=== PATIENT | female | born 1995 | race Caucasian/White ===

== ENCOUNTER 2018-04-23 12:30 | Inpatient (IN) | payer OTHER ==
[~2018-04-23] VITALS: Ht 165.1 cm; Wt 120.7 kg
[2018-04-23 13:46] VITALS: BP 134/83
[2018-04-23 13:49] LABS: EOSINOPHILS % (AUTO) 10.4 % (0.0-3.0); HEMATOCRIT 39.6 % (37.0-47.0); HEMOGLOBIN 13.5 G/DL (12.0-16.0); LYMPHOCYTES % (AUTO) 22.9 % (20.0-45.0); MEAN CORPUSCULAR VOLUME 83 FL (80-99); MONOCYTES % (AUTO) 5.7 % (1.0-10.0); NEUTROPHILS % (AUTO) 60.1 % (45.0-75.0); PLATELET COUNT 284 K/UL (150-450); RED BLOOD COUNT 4.77 M/UL (4.20-5.40); RED CELL DISTRIBUTION WIDTH 10.2 % (11.6-14.8); WHITE BLOOD COUNT 9.9 K/UL (4.8-10.8)
[2018-04-23 14:00] LABS: INR 1.1 (0.9-1.1)
[2018-04-23] MEDS ORDERED: NKM (14:14)
[2018-04-23 14:18] LABS: ANION GAP 12 mmol/L (5-15); BLOOD UREA NITROGEN 11 mg/dL (7-18); CALCIUM 9.3 MG/DL (8.5-10.1); CARBON DIOXIDE 24 MMOL/L (21-32); CHLORIDE 102 MMOL/L (98-107); CREATININE 0.9 MG/DL (0.55-1.30); POTASSIUM 3.7 MMOL/L (3.5-5.1); SODIUM 138 MMOL/L (136-145)
[2018-04-23 14:23] LABS: ALANINE AMINOTRANSFERASE 61 U/L (12-78); ALBUMIN 3.9 G/DL (3.4-5.0); ALKALINE PHOSPHATASE 73 U/L (46-116); ASPARTATE AMINO TRANSFERASE 47 U/L (15-37); BILIRUBIN,TOTAL 0.9 MG/DL (0.2-1.0)
[2018-04-23] MEDS ORDERED: Mylanta II UD 30ml ORAL PRN (14:30)
--- NOTE | 2018-04-23 14:36 | Emergency Room Report ---
History of Present Illness General Chief Complaint: Skin Rash/Abscess Source: Patient Present Illness HPI This patient has a history of hidradenitis suppurativa. She presents to the emergency department for admission for surgical resection by Dr. Gutiérrez. She has no other complaints. Allergies: Coded Allergies: MORPHINE (Verified Allergy, Unknown, 04/23/18) Patient History Past Medical History: see triage record, DM Social History: Denies: smoking, alcohol use, drug use Last Menstrual Period: March, Now: No Reviewed Nursing Documentation: PMH: Agreed; PSxH: Agreed Nursing Documentation-PMH Past Medical History: No History, Except For Hx Cardiac Problems: Yes - Fibromyalgia, endometriosis Hx Diabetes: Yes Review of Systems All Other Systems: negative except mentioned in HPI Physical Exam Vital Signs Date Time Temp Pulse Resp B/P (MAP) Pulse Ox O2 Delivery O2 Flow Rate FiO2 04/23/18 12:50 Room Air 04/23/18 13:46 97.9 75 18 134/83 99 97.9 Sp02 EP Interpretation: reviewed, normal General Appearance: no apparent distress, alert, GCS 15, non-toxic Head: normocephalic, atraumatic Eyes: bilateral eye normal inspection, bilateral eye PERRL ENT: hearing grossly normal, normal pharynx, no angioedema, normal voice Respiratory: no respiratory distress, no retraction, no accessory muscle use, speaking full sentences Rectal: deferred Musculoskeletal: back normal, gait/station normal, normal range of motion, non- tender Neurologic: alert, oriented x3, responsive, motor strength/tone normal, sensory intact, speech normal Psychiatric: judgement/insight normal, memory normal, mood/affect normal, no suicidal/homicidal ideation Skin: warm/dry, well hydrated, other - Multiple areas of cystic lesions on bilateral axillary folds, breasts and chest. Medical Decision Making Diagnostic Impression: Primary Impression: Hidradenitis suppurativa ER Course This patient has hidradenitis suppurativa that is resistant to conservative treatment. Patient is admitted for surgical treatment by Dr. Gutiérrez. Laboratory Tests Test 04/23/18 13:40 White Blood Count 9.9 K/UL (4.8-10.8) Red Blood Count 4.77 M/UL (4.20-5.40) Hemoglobin 13.5 G/DL (12.0-16.0) Hematocrit 39.6 % (37.0-47.0) Mean Corpuscular Volume 83 FL (80-99) Mean Corpuscular Hemoglobin 28.4 PG (27.0-31.0) Mean Corpuscular Hemoglobin Concent 34.2 G/DL (32.0-36.0) Red Cell Distribution Width 10.2 % (11.6-14.8) L Platelet Count 284 K/UL (150-450) Mean Platelet Volume 7.1 FL (6.5-10.1) Neutrophils (%) (Auto) 60.1 % (45.0-75.0) Lymphocytes (%) (Auto) 22.9 % (20.0-45.0) Monocytes (%) (Auto) 5.7 % (1.0-10.0) Eosinophils (%) (Auto) 10.4 % (0.0-3.0) H Basophils (%) (Auto) 1.0 % (0.0-2.0) Prothrombin Time 11.1 SEC (9.30-11.50) Prothrombin Time INR 1.1 (0.9-1.1) PTT 35 SEC (23-33) H Sodium Level 138 MMOL/L (136-145) Potassium Level 3.7 MMOL/L (3.5-5.1) Chloride Level 102 MMOL/L (98-107) Carbon Dioxide Level 24 MMOL/L (21-32) Anion Gap 12 mmol/L (5-15) Blood Urea Nitrogen 11 mg/dL (7-18) Creatinine 0.9 MG/DL (0.55-1.30) Estimate Glomerular Filtration Rate > 60 mL/min (>60) Glucose Level 168 MG/DL (74-106) H Calcium Level 9.3 MG/DL (8.5-10.1) Total Bilirubin 0.9 MG/DL (0.2-1.0) Aspartate Amino Transferase (AST) 47 U/L (15-37) H Alanine Aminotransferase (ALT) 61 U/L (12-78) Alkaline Phosphatase 73 U/L (46-116) Total Protein 8.0 G/DL (6.4-8.2) Albumin 3.9 G/DL (3.4-5.0) Globulin 4.1 g/dL Albumin/Globulin Ratio 1.0 (1.0-2.7) Last Vital Signs Date Time Temp Pulse Resp B/P (MAP) Pulse Ox O2 Delivery O2 Flow Rate FiO2 04/23/18 13:46 97.9 75 18 134/83 99 Room Air 97.9 Disposition: ADMITTED INPATIENT Condition: Stable Angi Jc DO Apr 23, 2018 14:36
[2018-04-23] MEDS ORDERED: oxyCODONE HCL/Acetaminophen 5/325mg ORAL PRN (15:30)
[2018-04-23 16:00] VITALS: BP 121/97
[2018-04-23] MEDS: HYDROmorphone 1mg/ml Carpuject IVP PRN (16:37)
[2018-04-23] MEDS: cefTRIAXone 1 GM in D5W 55 ML IVPB SCH (17:10)
--- NOTE | 2018-04-23 17:10 | History and Physical ---
History of Present Illness General Date patient seen: Apr 23, 2018 Time patient seen: 13:00 Reason for Hospitalization: Skin Rash/Abscess Present Illness HPI 22 year old woman with obesity, diet controlled DM2 x 1 year, hidradenitis suppurative x 10 years s/p axillary and inguinal surgeries who presents with progressive pain, swelling and multiple purulent draining lesions of bilateral axillae and breasts who has been worsening over the past month. She reports subjective fever, 80 lb unintentional weight loss, intermittent nausea, vomiting and diarrhea. She also reports intermittent subjective fevers especially when new lesions erupt. In ED she was noted to have fever or leukocytosis, SIRS criteria not met. Allergies: Coded Allergies: MORPHINE (Verified Allergy, Unknown, 04/23/18) Medication History Scheduled No Known Medications* (NKM - No Known Medications*), 0 ., (Reported) Patient History History Provided By: Patient Healthcare decision maker Resuscitation status Full Code Advanced Directive on File Family History Family History: FH: diabetes mellitus Fibromyalgia Social History Social History: (1) Non-tobacco user Review of Systems Constitutional: Reports: fever Eye: Denies: blurred vision ENT: Denies: ear pain Respiratory: Denies: cough, orthopnea, shortness of breath Cardiovascular: Denies: chest pain, palpitations Gastrointestinal: Denies: abdominal pain, constipation Genitourinary: Denies: discharge, dysuria, frequency Musculoskeletal: Denies: back pain, gout Skin: Reports: see HPI, lesions Psychiatric: Denies: anxiety, depressed feelings Neurological: Denies: headache, numbness, paresthesia, seizure Endocrine: Denies: excessive sweating, flushing Hematologic/Lymphatic: Denies: anemia, blood clots, easy bleeding Physical Exam General Appearance: no apparent distress, alert HEENT: atraumatic, anicteric Neck: normal alignment, supple, normal inspection Respiratory/Chest: lungs clear, normal breath sounds, no respiratory distress Cardiovascular/Chest: normal rate, regular rhythm, no gallop/murmur, no JVD Abdomen: normal bowel sounds, non tender, soft Extremities: normal range of motion, non-tender, normal inspection, no calf tenderness Skin Exam: other - Multiple erythematous lesions of the bilateral axillae and bilateral breasts with tenderness to palpation with warmth and induration. Some areas of serous drainage. 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 grossly normal, no motor/sensory deficits, oriented x 3 , responsive, normal mood/affect Musculoskeletal: normal muscle bulk, no effusion Last 24 Hour Vital Signs Date Time Temp Pulse Resp B/P (MAP) Pulse Ox O2 Delivery O2 Flow Rate FiO2 04/23/18 16:37 97.9 04/23/18 15:30 Room Air 04/23/18 14:53 97.9 75 18 134/83 99 Room Air 97.9 04/23/18 13:46 97.9 75 18 134/83 99 Room Air 97.9 04/23/18 12:50 Room Air Laboratory Tests Test 04/23/18 13:40 White Blood Count 9.9 K/UL (4.8-10.8) Red Blood Count 4.77 M/UL (4.20-5.40) Hemoglobin 13.5 G/DL (12.0-16.0) Hematocrit 39.6 % (37.0-47.0) Mean Corpuscular Volume 83 FL (80-99) Mean Corpuscular Hemoglobin 28.4 PG (27.0-31.0) Mean Corpuscular Hemoglobin Concent 34.2 G/DL (32.0-36.0) Red Cell Distribution Width 10.2 % (11.6-14.8) L Platelet Count 284 K/UL (150-450) Mean Platelet Volume 7.1 FL (6.5-10.1) Neutrophils (%) (Auto) 60.1 % (45.0-75.0) Lymphocytes (%) (Auto) 22.9 % (20.0-45.0) Monocytes (%) (Auto) 5.7 % (1.0-10.0) Eosinophils (%) (Auto) 10.4 % (0.0-3.0) H Basophils (%) (Auto) 1.0 % (0.0-2.0) Prothrombin Time 11.1 SEC (9.30-11.50) Prothromb Time International Ratio 1.1 (0.9-1.1) Activated Partial Thromboplast Time 35 SEC (23-33) H Sodium Level 138 MMOL/L (136-145) Potassium Level 3.7 MMOL/L (3.5-5.1) Chloride Level 102 MMOL/L (98-107) Carbon Dioxide Level 24 MMOL/L (21-32) Anion Gap 12 mmol/L (5-15) Blood Urea Nitrogen 11 mg/dL (7-18) Creatinine 0.9 MG/DL (0.55-1.30) Estimat Glomerular Filtration Rate > 60 mL/min (>60) Glucose Level 168 MG/DL (74-106) H Calcium Level 9.3 MG/DL (8.5-10.1) Total Bilirubin 0.9 MG/DL (0.2-1.0) Aspartate Amino Transf (AST/SGOT) 47 U/L (15-37) H Alanine Aminotransferase (ALT/SGPT) 61 U/L (12-78) Alkaline Phosphatase 73 U/L (46-116) Total Protein 8.0 G/DL (6.4-8.2) Albumin 3.9 G/DL (3.4-5.0) Globulin 4.1 g/dL Albumin/Globulin Ratio 1.0 (1.0-2.7) Height (Feet): 5 Height (Inches): 5.00 Weight (Pounds): 246 Medications Current Medications Medications (Trade) Dose Ordered Sig/Eloisa Route PRN Reason Start Time Stop Time Status Last Admin Dose Admin Acetaminophen (Tylenol) 650 mg Q4H PRN ORAL Mild Pain (Pain Scale 1-3) 04/23/18 15:05 05/23/18 15:04 Al Hydroxide/Mg Hydroxide (Mylanta II) 30 ml Q6H PRN ORAL dyspepsia 04/23/18 14:30 05/23/18 14:29 Ceftriaxone Sodium 1 gm/ Dextrose 55 ml @ 110 mls/hr Q24H IVPB 04/23/18 17:00 04/30/18 16:59 Dextrose (Dextrose 50%) 25 ml Q30M PRN IV Hypoglycemia 04/23/18 14:30 05/23/18 14:29 Dextrose (Dextrose 50%) 50 ml Q30M PRN IV Hypoglycemia 04/23/18 14:30 05/23/18 14:29 Diphenhydramine HCl (Benadryl) 25 mg Q6H PRN ORAL Itching/Pruritis 04/23/18 14:30 05/23/18 14:29 Docusate Sodium (Colace) 100 mg EVERY 12 HOURS ORAL 04/23/18 21:00 05/23/18 20:59 Hydromorphone HCl (Dilaudid) 1 mg Q4H PRN IVP Severe Breakthru Pain (>7) 04/23/18 15:30 04/30/18 15:29 04/23/18 16:37 Ondansetron HCl (Zofran) 4 mg Q6H PRN IVP Nausea & Vomiting 04/23/18 14:30 05/23/18 14:29 Oxycodone/ Acetaminophen (Percocet 5-325) 1 tab Q4H PRN ORAL Moderate Pain (Pain Scale 4-6) 04/23/18 15:30 04/30/18 15:29 Polyethylene Glycol (Miralax) 17 gm HSPRN PRN ORAL Constipation 04/23/18 14:30 05/23/18 14:29 Sodium Chloride 1,000 ml @ 50 mls/hr Q20H IV 04/23/18 15:04 05/23/18 15:03 04/23/18 15:04 Vancomycin HCl (Vanco rx to dose) 1 ea DAILY PRN MISC VANCO PER PHARMACY 04/23/18 16:00 05/23/18 15:59 Vancomycin HCl/ Dextrose 250 ml @ 166.667 mls/hr Q12H IVPB 04/23/18 18:00 04/28/18 17:59 Assessment/Plan Assessment/Plan 22 year old woman with history of hidradenitis suppurativa, obesity, diet controlled diabetes, fibromyalgia who presents with worsening multiple bilateral axillary and breast draining abscesses associated with red, pain, subjective fever. Will admit to medical service for further management and she will likely require a hospitalization crossing 2 midnights in order to get IV antibiotics and close hemodynamic monitoring. 1)Multiple bilateral axillary and breast abscesses without sepsis, will admit to medical service, start IV vancomycin and ceftriaxone, monitor vanco levels per pharmacy protcol. Spoke with infectious disease specialist who will evaluate the patient. Spoke with Dr. Jiang who will evaluate for surgical debridement. Will make NPO after midnight. Patient is considered medically optimized to go to the OR. Will commence symptomatic care, will order Percocet for mild to moderate pain, IV Dilaudid for severe pain, she reports morphine allergy (mild rash) and that Dilaudid has worked well for her in the past. Add bowel regimen and IV Zofran prn. 2)history of obesity and diet controlled DM, diabetic diet with lispro coverage once she is able to eat 3)history of fibromyalgia, currently not on any medications for thisl Based on the patient's medical history, and other available ancillary data, the patient is a LOW risk for an INTERMEDIATE risk procedure. Per the most recent ACC/AHA guidelines, the patient does not need any further cardiopulmonary testing prior to the procedure and there do not appear to be any clear medical contraindications to proceeding with the proposed procedure. Post operative recommendations include: - Encourage mobilization/ambulation - Encourage incentive spirometry to optimize pulmonary hygiene - DVT/GI prophylaxis as appropriate - Pain control and supportive care Ayo Rodriguez MD Apr 23, 2018 17:10
[2018-04-23 17:28] VITALS: BP 134/83
[2018-04-23] MEDS: Vancomycin 1250mg/D5W 250ml IVPB SCH (18:12)
--- NOTE | 2018-04-23 18:21 | Infectious Diseases Prog Note ---
Assessment/Plan Assessment/Plan Full consult dictated: A) 1) bilateral axilla and breast hidradenitis suppurativa with abscesses/ cellulitis/infected wounds 2) pmh noted 3) allergies - morphine P) 1) vancomycin and rocephin 2) plan on surgical debridement per d/w RN 3) d/w Dr. Villavicencio 4) thank you Subjective Allergies: Coded Allergies: MORPHINE (Verified Allergy, Unknown, 04/23/18) Objective Vital Signs Last 24 Hour Vital Signs Date Time Temp Pulse Resp B/P (MAP) Pulse Ox O2 Delivery O2 Flow Rate FiO2 04/23/18 17:28 97.9 75 18 134/83 (100) 99 97.9 04/23/18 17:07 97.9 04/23/18 16:37 97.9 04/23/18 16:00 97.6 83 22 121/97 (105) 99 97.6 04/23/18 15:30 Room Air 04/23/18 14:53 97.9 75 18 134/83 99 Room Air 97.9 04/23/18 13:46 97.9 75 18 134/83 99 Room Air 97.9 04/23/18 12:50 Room Air Height (Feet): 5 Height (Inches): 5.00 Weight (Pounds): 246 Laboratory Tests Test 04/23/18 13:40 White Blood Count 9.9 K/UL (4.8-10.8) Red Blood Count 4.77 M/UL (4.20-5.40) Hemoglobin 13.5 G/DL (12.0-16.0) Hematocrit 39.6 % (37.0-47.0) Mean Corpuscular Volume 83 FL (80-99) Mean Corpuscular Hemoglobin 28.4 PG (27.0-31.0) Mean Corpuscular Hemoglobin Concent 34.2 G/DL (32.0-36.0) Red Cell Distribution Width 10.2 % (11.6-14.8) L Platelet Count 284 K/UL (150-450) Mean Platelet Volume 7.1 FL (6.5-10.1) Neutrophils (%) (Auto) 60.1 % (45.0-75.0) Lymphocytes (%) (Auto) 22.9 % (20.0-45.0) Monocytes (%) (Auto) 5.7 % (1.0-10.0) Eosinophils (%) (Auto) 10.4 % (0.0-3.0) H Basophils (%) (Auto) 1.0 % (0.0-2.0) Prothrombin Time 11.1 SEC (9.30-11.50) Prothromb Time International Ratio 1.1 (0.9-1.1) Activated Partial Thromboplast Time 35 SEC (23-33) H Sodium Level 138 MMOL/L (136-145) Potassium Level 3.7 MMOL/L (3.5-5.1) Chloride Level 102 MMOL/L (98-107) Carbon Dioxide Level 24 MMOL/L (21-32) Anion Gap 12 mmol/L (5-15) Blood Urea Nitrogen 11 mg/dL (7-18) Creatinine 0.9 MG/DL (0.55-1.30) Estimat Glomerular Filtration Rate > 60 mL/min (>60) Glucose Level 168 MG/DL (74-106) H Calcium Level 9.3 MG/DL (8.5-10.1) Total Bilirubin 0.9 MG/DL (0.2-1.0) Aspartate Amino Transf (AST/SGOT) 47 U/L (15-37) H Alanine Aminotransferase (ALT/SGPT) 61 U/L (12-78) Alkaline Phosphatase 73 U/L (46-116) Total Protein 8.0 G/DL (6.4-8.2) Albumin 3.9 G/DL (3.4-5.0) Globulin 4.1 g/dL Albumin/Globulin Ratio 1.0 (1.0-2.7) Current Medications Medications (Trade) Dose Ordered Sig/Eloisa Route PRN Reason Start Time Stop Time Status Last Admin Dose Admin Acetaminophen (Tylenol) 650 mg Q4H PRN ORAL Mild Pain (Pain Scale 1-3) 04/23/18 15:05 05/23/18 15:04 Al Hydroxide/Mg Hydroxide (Mylanta II) 30 ml Q6H PRN ORAL dyspepsia 04/23/18 14:30 05/23/18 14:29 Ceftriaxone Sodium 1 gm/ Dextrose 55 ml @ 110 mls/hr Q24H IVPB 04/23/18 17:00 04/30/18 16:59 04/23/18 17:10 Dextrose (Dextrose 50%) 25 ml Q30M PRN IV Hypoglycemia 04/23/18 14:30 05/23/18 14:29 Dextrose (Dextrose 50%) 50 ml Q30M PRN IV Hypoglycemia 04/23/18 14:30 05/23/18 14:29 Diphenhydramine HCl (Benadryl) 25 mg Q6H PRN ORAL Itching/Pruritis 04/23/18 14:30 05/23/18 14:29 Docusate Sodium (Colace) 100 mg EVERY 12 HOURS ORAL 04/23/18 21:00 05/23/18 20:59 Hydromorphone HCl (Dilaudid) 1 mg Q4H PRN IVP Severe Breakthru Pain (>7) 04/23/18 15:30 04/30/18 15:29 04/23/18 16:37 Ondansetron HCl (Zofran) 4 mg Q6H PRN IVP Nausea & Vomiting 04/23/18 14:30 05/23/18 14:29 Oxycodone/ Acetaminophen (Percocet 5-325) 1 tab Q4H PRN ORAL Moderate Pain (Pain Scale 4-6) 04/23/18 15:30 04/30/18 15:29 Polyethylene Glycol (Miralax) 17 gm HSPRN PRN ORAL Constipation 04/23/18 14:30 05/23/18 14:29 Sodium Chloride 1,000 ml @ 50 mls/hr Q20H IV 04/23/18 15:04 05/23/18 15:03 04/23/18 15:04 Vancomycin HCl (Vanco rx to dose) 1 ea DAILY PRN MISC VANCO PER PHARMACY 04/23/18 16:00 05/23/18 15:59 Vancomycin HCl/ Dextrose 250 ml @ 166.667 mls/hr Q12H IVPB 04/23/18 18:00 04/28/18 17:59 Brandt Mcrae MD Apr 23, 2018 18:21
[2018-04-23 20:00] VITALS: BP 108/65
[2018-04-23] MEDS: Docusate 100mg cap ORAL SCH (20:03)
[2018-04-23] MEDS: ALPRAZolam 0.5mg tab ORAL PRN (20:03)
[2018-04-23] MEDS ORDERED: Vancomycin 1 GM in D5W 275 ML IVPB SCH (21:00)
[2018-04-24] VITALS (13 sets, daily range): BP systolic 104–141; BP diastolic 63–88
[2018-04-24] MEDS: HYDROmorphone 1mg/ml Carpuject IVP PRN (04:07)
[2018-04-24] MEDS: Vancomycin 1250mg/D5W 250ml IVPB SCH ×2 (06:14→18:55)
[2018-04-24 08:00] LABS: BASOPHILS % (AUTO) 0.8 % (0.0-2.0); EOSINOPHILS % (AUTO) 8.5 % (0.0-3.0); HEMATOCRIT 37.8 % (37.0-47.0); HEMOGLOBIN 13.1 G/DL (12.0-16.0); LYMPHOCYTES % (AUTO) 27.7 % (20.0-45.0); MEAN CORPUSCULAR VOLUME 83 FL (80-99); MONOCYTES % (AUTO) 6.9 % (1.0-10.0); PLATELET COUNT 263 K/UL (150-450); RED BLOOD COUNT 4.56 M/UL (4.20-5.40); RED CELL DISTRIBUTION WIDTH 10.2 % (11.6-14.8); WHITE BLOOD COUNT 9.4 K/UL (4.8-10.8)
[2018-04-24 08:29] LABS: ANION GAP 12 mmol/L (5-15); BLOOD UREA NITROGEN 9 mg/dL (7-18); CALCIUM 8.8 MG/DL (8.5-10.1); CARBON DIOXIDE 22 MMOL/L (21-32); CHLORIDE 103 MMOL/L (98-107); CREATININE 0.8 MG/DL (0.55-1.30); POTASSIUM 3.7 MMOL/L (3.5-5.1); SODIUM 137 MMOL/L (136-145)
[2018-04-24] MEDS: Docusate 100mg cap ORAL SCH ×2 (08:38→17:47)
--- NOTE | 2018-04-24 09:29 | Pre-Procedure Note/Attestation ---
Pre-Procedure Note/Attestation Complete Prior to Procedure Planned Procedure: bilateral Procedure Narrative: Bilateral breast debridement and flap elevation Attestation I attest that I discussed the nature of the procedure; its benefits; risks and complications; and alternatives (and the risks and benefits of such alternatives ), prior to the procedure, with the patient (or the patient's legal real estate representative). I attest that, if there was a reasonable possibility of needing a blood transfusion, the patient (or the patient's legal real estate representative) was given the [facility] standardized written summary, pursuant to the [place] Blood Safety Act ([place] Health and Safety Code # 1645, as amended). I attest that I re-evaluated the patient just prior to the surgery and that there has been no change in the patient's H&P, except as documented below: ANNITA PENA Apr 24, 2018 09:29
[2018-04-24] MEDS ORDERED: Zolpidem 5mg tab ORAL PRN (09:30)
[2018-04-24] MEDS ORDERED: PCA Education Pamphlet MISC ONE (09:30)
[2018-04-24] MEDS ORDERED: Rate Change PCA 1 Each MISC PRN (09:30)
[2018-04-24] MEDS ORDERED: fentaNYL 100 mcg/2 mL IV ONE (09:56)
[2018-04-24] MEDS ORDERED: Midazolam 2mg/2ml Inj ONE (09:56)
[2018-04-24] MEDS ORDERED: Ketorolac 30mg Inj ONE ×2 (09:57→10:55)
[2018-04-24] MEDS ORDERED: Propofol 200mg/20ml IV ONE ×2 (09:57→11:05)
[2018-04-24] MEDS ORDERED: Lidocaine 1% MPF 10mg/ml 5ml ONE (09:57)
[2018-04-24] MEDS ORDERED: LR 1000ml ONE (10:00)
[2018-04-24] MEDS ORDERED: Sterile Water Irrig 1000ml IRRIG ONE (10:00)
[2018-04-24] MEDS ORDERED: NS Irrig 1000ml ONE (10:00)
[2018-04-24] MEDS ORDERED: Zemuron 50mg/5ml Inj IV ONE (10:04)
[2018-04-24] MEDS ORDERED: Succinylcholine 20mg/ml 10ml vial ONE (10:05)
[2018-04-24] MEDS ORDERED: Lidocaine 1% 10mg/ml/EPI 0.01mg/ml 50ml INJ ONE (10:06)
[2018-04-24] MEDS ORDERED: Bacitracin 50000 Units Vial ONE (10:06)
[2018-04-24] MEDS ORDERED: NeoSporin Gu Irrig 1ml Amp IRRIG ONE (10:06)
[2018-04-24] MEDS ORDERED: Morphine Sulfate 10mg/ml Inj ONE (10:54)
[2018-04-24] MEDS ORDERED: Glycopyrrolate 0.2mg/ml 1ml Vial ONE (10:55)
[2018-04-24] MEDS ORDERED: Sodium Chloride 10ml vial INJ ONE (10:55)
[2018-04-24] MEDS ORDERED: LR 1000ml 1,000 ML IVLG SCH (11:06)
--- NOTE | 2018-04-24 11:06 | Anethesia Preoperative Eval ---
Anesthesia Pre-op PMH/ROS General Date of Evaluation: Apr 24, 2018 Time of Evaluation: 09:50 Anesthesiologist: Sandy ASA Score: ASA 3 Mallampati Score Class I : Soft palate, uvula, fauces, pillars visible Class II: Soft palate, uvula, fauces visible Class III: Soft palate, base of uvula visible Class IV: Only hard plate visible Mallampati Classification: Class III Surgeon: Apolinar Diagnosis: Recurrent HS Surgical Procedure: Excision of bilateral breasts lesions Anesthesia History: PONV Family History: no anesthesia problems Allergies: Coded Allergies: MORPHINE (Verified Allergy, Unknown, 04/23/18) Medications: see eMAR Past Medical History Cardiovascular: Denies: HTN, CAD, MA, valve dz, arrhythmia, other Pulmonary: Denies: asthma, COPD, MARA, other Gastrointestinal/Genitourinary: Reports: GERD; Denies: CRI, ESRD, other Neurologic/Psychiatric: Reports: depression/anxiety; Denies: dementia, CVA, TIA, other Endocrine: Reports: DM - borderline; Denies: hypothyroidism, steroids, other HEENT: Denies: cataract (L), cataract (R), glaucoma, INAJA (L), INAJA (R), other Hematology/Immune: Denies: anemia, DVT, bleeding disorder, other Musculoskeletal/Integumentary: Denies: OA, RA, DJD, DDD, edema, other Other: obesity PMH Narrative: as above PSxH Narrative: Surgical treatment of HS, Cholecystectomy Anesthesia Pre-op Phys. Exam Physician Exam Last Vital Signs Date Time Temp Pulse Resp B/P (MAP) Pulse Ox O2 Delivery O2 Flow Rate FiO2 04/24/18 08:00 97.5 74 19 112/71 (85) 97.5 04/24/18 04:00 99 04/23/18 21:00 Room Air Constitutional: NAD Neurologic: CN 2-12 intact Cardiovascular: RRR, no M/R/G Respiratory: CTA Gastrointestinal: other - obesity Airway Exam Mallampati Score: Class III MO: limited Neck: short ROM: full Teeth: intact Dentures: no upper, no lower Anesthesia Pre-op A/P Labs Hematology Test 04/23/18 13:40 04/24/18 06:35 White Blood Count 9.9 K/UL (4.8-10.8) 9.4 K/UL (4.8-10.8) Red Blood Count 4.77 M/UL (4.20-5.40) 4.56 M/UL (4.20-5.40) Hemoglobin 13.5 G/DL (12.0-16.0) 13.1 G/DL (12.0-16.0) Hematocrit 39.6 % (37.0-47.0) 37.8 % (37.0-47.0) Mean Corpuscular Volume 83 FL (80-99) 83 FL (80-99) Mean Corpuscular Hemoglobin 28.4 PG (27.0-31.0) 28.8 PG (27.0-31.0) Mean Corpuscular Hemoglobin Concent 34.2 G/DL (32.0-36.0) 34.7 G/DL (32.0-36.0) Red Cell Distribution Width 10.2 % (11.6-14.8) L 10.2 % (11.6-14.8) L Platelet Count 284 K/UL (150-450) 263 K/UL (150-450) Mean Platelet Volume 7.1 FL (6.5-10.1) 7.4 FL (6.5-10.1) Neutrophils (%) (Auto) 60.1 % (45.0-75.0) 56.0 % (45.0-75.0) Lymphocytes (%) (Auto) 22.9 % (20.0-45.0) 27.7 % (20.0-45.0) Monocytes (%) (Auto) 5.7 % (1.0-10.0) 6.9 % (1.0-10.0) Eosinophils (%) (Auto) 10.4 % (0.0-3.0) H 8.5 % (0.0-3.0) H Basophils (%) (Auto) 1.0 % (0.0-2.0) 0.8 % (0.0-2.0) Coagulation Test 04/23/18 13:40 Prothrombin Time 11.1 SEC (9.30-11.50) Prothromb Time International Ratio 1.1 (0.9-1.1) Activated Partial Thromboplast Time 35 SEC (23-33) H Chemistry Test 04/23/18 13:40 04/24/18 06:35 Sodium Level 138 MMOL/L (136-145) 137 MMOL/L (136-145) Potassium Level 3.7 MMOL/L (3.5-5.1) 3.7 MMOL/L (3.5-5.1) Chloride Level 102 MMOL/L (98-107) 103 MMOL/L (98-107) Carbon Dioxide Level 24 MMOL/L (21-32) 22 MMOL/L (21-32) Anion Gap 12 mmol/L (5-15) 12 mmol/L (5-15) Blood Urea Nitrogen 11 mg/dL (7-18) 9 mg/dL (7-18) Creatinine 0.9 MG/DL (0.55-1.30) 0.8 MG/DL (0.55-1.30) Estimat Glomerular Filtration Rate > 60 mL/min (>60) > 60 mL/min (>60) Glucose Level 168 MG/DL (74-106) H 165 MG/DL (74-106) H Calcium Level 9.3 MG/DL (8.5-10.1) 8.8 MG/DL (8.5-10.1) Total Bilirubin 0.9 MG/DL (0.2-1.0) Aspartate Amino Transf (AST/SGOT) 47 U/L (15-37) H Alanine Aminotransferase (ALT/SGPT) 61 U/L (12-78) Alkaline Phosphatase 73 U/L (46-116) Total Protein 8.0 G/DL (6.4-8.2) Albumin 3.9 G/DL (3.4-5.0) Globulin 4.1 g/dL Albumin/Globulin Ratio 1.0 (1.0-2.7) Urine Test Test 04/24/18 06:00 Urine HCG, Qualitative Negative (NEGATIVE) Studies Pre-op Studies: EKG - SR Risk Assessment & Plan Assessment: ASA 3 Plan: GA with ETT PONV prevention Status Change Before Surgery: No Pre-Antibiotics Drug: Ancef 2gr. Given Within 1 Hr of Incision: Yes Time Given: 10:20 Ismael Delgado MD Apr 24, 2018 11:06
[2018-04-24] MEDS ORDERED: Metoclopramide 10mg/2ml Inj IVP PRN (11:15)
[2018-04-24] MEDS ORDERED: Meperidine 50mg/ml Inj(FOR RIGORS ONLY) IV PRN (11:15)
[2018-04-24] MEDS ORDERED: Midazolam 2mg/2ml Inj IVP PRN (11:15)
[2018-04-24] MEDS ORDERED: Ketorolac 30mg Inj IV PRN (11:15)
[2018-04-24] MEDS ORDERED: DiphenhydrAMINE 50mg/ml Inj IVP PRN (11:15)
--- NOTE | 2018-04-24 11:59 | Immediate Post-Op Evaluation ---
Immediate Post-Op Evalulation Immediate Post-Op Evalulation Procedure: Excision of bilateral breasts HS lesions Date of Evaluation: Apr 24, 2018 Time of Evaluation: 11:58 IV Fluids: 1000 Blood Products: none Estimated Blood Loss: 50 Urinary Output: none Blood Pressure Systolic: 131 Blood Pressure Diastolic: 78 Pulse Rate: 86 Respiratory Rate: 20 O2 Sat by Pulse Oximetry: 99 Temperature (Fahrenheit): 97.7 Pain Score (1-10): 2 Nausea: No Vomiting: No Complications none Patient Status: reacts, patent, extubated, none Hydration Status: adequate Ismael Delgado MD Apr 24, 2018 11:59
[2018-04-24] MEDS: fentaNYL 100 mcg/2 mL IV PRN ×2 (12:34→12:48)
[2018-04-24] MEDS: PCA HYDROmorphone 1mg/ml 30 ML IV PRN (12:37)
[2018-04-24] MEDS: DiphenhydrAMINE 50mg/ml Inj IVP PRN ×2 (14:31→20:49)
--- NOTE | 2018-04-24 16:20 | General Progress Note ---
Assessment/Plan Status: doing well Assessment/Plan 22 year old woman with history of hidradenitis suppurativa, obesity, diet controlled diabetes, fibromyalgia who presented with worsening multiple bilateral axillary and breast draining abscesses associated with redness, pain and subjective fever. Multiple bilateral axillary and breast abscesses, continue IV vancomycin and ceftriaxone and monitor vancomycin levels per pharmacy protocol. ID following. Plan for surgical debridement today. In the post-op period we will proceed with routine measures including early mobilization/ambulation, incentive spirometry, DVT prophylaxis (will start heparin subcutaneously once given the ok by Surgery) , pain control and supportive measures. Local wound care as per Plastic Surgery history of obesity and diet controlled DM, diabetic diet with lispro coverage once she is able to eat history of fibromyalgia, continue pain meds as needed. Subjective Date patient seen: Apr 24, 2018 Time patient seen: 07:15 Constitutional: Denies: chills, fever Cardiovascular: Denies: chest pain, edema Respiratory: Denies: cough, orthopnea, shortness of breath Gastrointestinal/Abdominal: Denies: abdomen distended, abdominal pain Allergies: Coded Allergies: MORPHINE (Verified Allergy, Unknown, 04/23/18) Subjective Medicine followup for bilateral axillary and breast abscesses in the setting of hidradenitis suppurativa. She was seen early this morning prior to surgery. She reported new abscess formation overnight in bilateral upper thighs Objective Last 24 Hour Vital Signs Date Time Temp Pulse Resp B/P (MAP) Pulse Ox O2 Delivery O2 Flow Rate FiO2 04/24/18 13:22 18 04/24/18 13:15 98.0 04/24/18 13:07 98.0 04/24/18 13:04 18 04/24/18 12:55 98.0 68 13 141/74 100 Nasal Cannula 3 98.0 04/24/18 12:49 15 04/24/18 12:48 62 14 138/80 100 Nasal Cannula 3 04/24/18 12:48 97.8 04/24/18 12:37 18 04/24/18 12:37 97.8 04/24/18 12:34 97.8 04/24/18 12:34 60 14 137/82 100 Nasal Cannula 3 04/24/18 12:33 97.8 04/24/18 12:15 67 15 134/83 100 Nasal Cannula 3 04/24/18 12:05 69 23 139/88 100 Simple Mask 6 04/24/18 12:03 97.5 04/24/18 11:59 207.9 86 20 99 04/24/18 11:55 92 19 134/81 100 Simple Mask 6 04/24/18 11:50 81 22 136/78 100 Simple Mask 6 04/24/18 11:45 97.8 87 22 134/81 100 Simple Mask 6 97.8 04/24/18 09:00 Room Air 04/24/18 08:00 97.5 74 19 112/71 (85) 97.5 04/24/18 04:00 97.5 74 18 111/77 (88) 99 97.5 04/24/18 00:00 97.6 63 18 113/63 (80) 99 97.6 04/23/18 21:00 Room Air 04/23/18 20:00 98.0 74 18 108/65 (79) 100 98.0 04/23/18 18:33 97.9 04/23/18 18:03 97.9 04/23/18 17:28 97.9 75 18 134/83 (100) 99 97.9 04/23/18 17:07 97.9 04/23/18 16:37 97.9 Intake and Output 04/23/18 04/24/18 19:00 07:00 Intake Total 510 ml 200 ml Balance 510 ml 200 ml Intake Oral 360 ml IV Total 150 ml 200 ml # Voids 2 3 Laboratory Tests 04/24/18 06:00: Urine HCG, Qualitative Negative 04/24/18 06:35: White Blood Count 9.4, Red Blood Count 4.56, Hemoglobin 13.1, Hematocrit 37.8, Mean Corpuscular Volume 83, Mean Corpuscular Hemoglobin 28.8, Mean Corpuscular Hemoglobin Concent 34.7, Red Cell Distribution Width 10.2L, Platelet Count 263, Mean Platelet Volume 7.4, Neutrophils (%) (Auto) 56.0, Lymphocytes (%) (Auto) 27.7, Monocytes (%) (Auto) 6.9, Eosinophils (%) (Auto) 8.5H, Basophils (%) (Auto ) 0.8, Sodium Level 137, Potassium Level 3.7, Chloride Level 103, Carbon Dioxide Level 22, Anion Gap 12, Blood Urea Nitrogen 9, Creatinine 0.8, Estimat Glomerular Filtration Rate > 60, Glucose Level 165H, Calcium Level 8.8 Height (Feet): 5 Height (Inches): 5.00 Weight (Pounds): 243 Cardiovascular: normal rate, regular rhythm Respiratory/Chest: lungs clear, normal breath sounds, no respiratory distress Abdomen: non tender, soft Skin: other - Bilateral erythematous indurated and tender areas 0.5 cm in diameter in bilateral axillae and in the lower breasts. Similar lesions noted in bilateral inguinal area. Ayo Rodriguez MD Apr 24, 2018 16:20
--- NOTE | 2018-04-24 17:30 | Consultation ---
DATE OF CONSULTATION: 04/23/2018 INFECTIOUS DISEASE CONSULTATION ATTENDING PHYSICIAN: Tomeka Rudolph M.D. REFERRING PHYSICIAN: Dr. Villavicencio. REASON FOR CONSULTATION: The patient with bilateral axilla and breast hidradenitis suppurativa with possible draining abscesses, cellulitis, and infected wounds. CHIEF COMPLAINT: The patient's chief complaint coming into hospital is bilateral axilla and breast draining abscesses, cellulitis, and infected wounds secondary to hidradenitis suppurativa. HISTORY OF PRESENT ILLNESS: This is a very pleasant 22-year-old female, who comes in to [facility] because of bilateral axilla and breast drainage and pain. She has history of hidradenitis suppurativa for 10 years, she says she has had it. The patient has been treated with antibiotics in the past. The patient says she has noticed increased pain on the axilla area and breast area and drainage. Infectious consultation was requested for antibiotic management. She is currently on vanco and Rocephin. The patient discussed with nursing staff on the floor, is to undergo surgery with likely debridement of the hidradenitis suppurativa and also the abscesses, cellulitis, and infected wounds. MAR was noted. Orders were noted. Notes were reviewed. Case communicated with Dr. Villavicencio. REVIEW OF SYSTEMS: CONSTITUTIONAL: She currently has no fever, chills, night sweats, or weight loss. HEAD AND NECK: No head pain or neck pain. CARDIAC: No chest pain. GASTROINTESTINAL: No nausea, vomiting, or diarrhea. GENITOURINARY: No Price. No dysuria or frequency. PULMONARY: No shortness of breath, cough, or congestion. SKIN: No rash. EXTREMITIES: No extremity pain. NEUROLOGIC: No seizures. She has bilateral axilla and breast pain and drainage of hidradenitis suppurativa. PAST MEDICAL HISTORY: She has history of prediabetes. She has a history of the hidradenitis suppurativa x10 years and looks like she has a history of obesity and per the records diet-controlled diabetes type 2, she mentioned as prediabetes. ALLERGIES: To morphine. SOCIAL HISTORY: Negative for smoking, alcohol, or drug abuse. FAMILY HISTORY: Positive for diabetes and fibromyalgia. MEDICATIONS: Upon reviewing the MAR, she is on the following medications on docusate, vancomycin, and Rocephin. She is on hydromorphone, oxycodone, acetaminophen, and Zofran. Outside medications noted and reconciliated. PHYSICAL EXAMINATION: VITAL SIGNS: Temperature is 97.9 degrees, pulse rate 75, respiratory rate 18, blood pressure is 134/83, and saturation 99%. GENERAL: Alert, responsive, and oriented x3, in no acute distress. HEAD AND NECK: eyes - no icterus. Neck is supple. No JVD. Normocephalic. No icterus or thrush. HEART: Regular, no murmur or gallop ABDOMEN: Soft. Positive bowel sounds. Nontender. LUNGS: Clear bilaterally. No rhonchi or rales. SKIN: No rash. MUSCULOSKELETAL: No effusion in the legs or arthritis. PERIPHERAL VASCULAR: No cyanosis or gangrene. GENITOURINARY: She has no Price. No CVA tenderness. LINE SITES: Without phlebitis. NEUROLOGIC: Intact. Nonfocal. I examined the patient's axilla and the breast with the nurse in the room with me. In the bilateral axilla area and breast area, has the hidradenitis suppurativa. There is some fullness in the area, which looks like possible cellulitis and pain on palpation. There is no pussy drainage currently. LABORATORY DATA: White count 9.9 with hemoglobin 13.5. Creatinine is normal at 0.9. LFTs were noted. ASSESSMENT AND PLAN: 1. The patient has bilateral axilla and breast hidradenitis suppurativa with abscesses/cellulitis/infected wounds with hx drainage, and increasing pain. We will continue vancomycin and Rocephin, currently she is on. The patient to undergo surgery and discussed with nursing staff on the floor, which likely will require debridement. Continue vancomycin and Rocephin. Watch the patient clinically. Case communicated with Dr. Villavicencio. Watch creatinine closely on antibiotics. Continue vanc and Rocephin for now. 2. Obesity. 3. Prediabetes or type 2 diabetes mellitus. 4. History of hidradenitis suppurativa x10 years. 5. History of antibiotic use. 6. She has history of inguinal surgery in the past. 7. Allergic to morphine. 8. Social history is negative. 9. Family history positive for fibromyalgia and diabetes. 10. Case was discussed with RN. 11. MAR was noted. 12. Continue treatment per primary consultants. Brandt Mcrae M.D. DR: PARISA JOB#: [id number] CC: HARPER
[2018-04-24] MEDS: cefTRIAXone 1 GM in D5W 55 ML IVPB SCH (17:47)
[2018-04-24] MEDS: PCA shift volume MISC SCH (19:28)
[2018-04-24] MEDS: Heparin 5000 units/ml inj SUBQ SCH (20:56)
[2018-04-24] MEDS: ALPRAZolam 0.5mg tab ORAL PRN (21:01)
[2018-04-25] VITALS: BP 113/56
[2018-04-25 04:00] VITALS: BP 108/50
[2018-04-25] MEDS: Vancomycin 1250mg/D5W 250ml IVPB SCH ×2 (06:07→17:19)
[2018-04-25] MEDS: PCA shift volume MISC SCH ×2 (07:18→19:00)
[2018-04-25 07:59] VITALS: BP 143/72
--- NOTE | 2018-04-25 08:17 | General Progress Note ---
Progress Note Progress Note Pt seen and examined. Doing well. Dressings had to be reinforced. Will change dressings today. Plan for OR in AM for closure of wounds and removal of axillary disease. MD JEAN Coleman AMIR Apr 25, 2018 08:17
[2018-04-25] MEDS: Docusate 100mg cap ORAL SCH ×2 (08:45→17:24)
[2018-04-25] MEDS: Heparin 5000 units/ml inj SUBQ SCH ×2 (08:47→21:12)
[2018-04-25] MEDS ORDERED: Chloraseptic Spray 20mL Bottle ORAL PRN (08:58)
[2018-04-25] MEDS ORDERED: Lidocaine 1% Plain 30 ml INJ PRN (09:00)
[2018-04-25] MEDS ORDERED: Heparin 2000 units/Ns 1000ml INJ PRN (09:00)
[2018-04-25] MEDS: DiphenhydrAMINE 50mg/ml Inj IVP PRN (11:00)
[2018-04-25 12:00] VITALS: BP 117/73
--- NOTE | 2018-04-25 12:45 | 48 Hour Post Anesthesia Eval ---
Post Anesthesia Evaluation Procedure: Excision of bilateral breasts HS lesions Date of Evaluation: Apr 25, 2018 Time of Evaluation: 12:44 Blood Pressure Systolic: 116 0: 64 Pulse Rate: 74 Respiratory Rate: 20 Temperature (Fahrenheit): 97.8 O2 Sat by Pulse Oximetry: 99 Airway: patent Nausea: No Vomiting: No Pain Intensity: 3 Hydration Status: adequate Cardiopulmonary Status: stable Mental Status/LOC: patient returned to baseline Follow-up Care/Observations: n/a Post-Anesthesia Complications: none Follow-up care needed: N/A Ismael Delgado MD Apr 25, 2018 12:45
--- NOTE | 2018-04-25 14:52 | Diagnostic Imaging Report ---
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 The left upper extremity was prepped with alcohol. All elements of maximal sterile barrier technique were followed including usage of a cap, mask, sterile gown, sterile gloves, hand hygiene and a large sterile sheet. Sonographic evaluation of the upper extremity was performed demonstrating a patent and compressible basilic vein. Access was obtained under real-time ultrasound guidance (with utilization of sterile gel and sterile probe cover) and digital image was saved and archived. An .018 wire was introduced. Needle exchanged for a 5 Greek peel-away sheath. Measurements were obtained. A 5 Greek dual-lumen Power PICC line catheter was cut to 46 cm and introduced over the wire. Peel-away sheath and wire were removed.Catheter was secured to the skin using 2-0 Prolene suture. Both ports aspirate and flush easily. Fluoroscopic images show distal tip in the superior vena cava. The total fluoroscopic time 0.6 minutes Impression: Successful placement of an upper extremity PICC line catheter
[2018-04-25 16:00] VITALS: BP 109/65
--- NOTE | 2018-04-25 16:20 | General Progress Note ---
Assessment/Plan Assessment/Plan 22 year old woman with history of hidradenitis suppurativa, obesity, diet controlled diabetes, fibromyalgia who presented with worsening multiple bilateral axillary and breast draining abscesses associated with redness, pain and subjective fever. Multiple bilateral axillary and breast abscesses, continue IV vancomycin and ceftriaxone and monitor vancomycin levels per pharmacy protocol. Underwent debridement yesterday, Plan to go to the OR in AM for closure of wounds and removal of axillary disease. Patient still considered medically optimized for surgery tomorrow. Will continue with routine post-operative measures. history of obesity and diet controlled DM, lispro coverage. history of fibromyalgia, continue pain meds as needed. VTE PPx, heparin sq once ok with surgery. Subjective Date patient seen: Apr 25, 2018 Time patient seen: 10:30 ROS Limited/Unobtainable: No Constitutional: Denies: fever Cardiovascular: Denies: chest pain, edema Respiratory: Denies: cough, shortness of breath Gastrointestinal/Abdominal: Denies: abdomen distended, abdominal pain Genitourinary: Denies: burning, discharge Neurologic/Psychiatric: Denies: headache Allergies: Coded Allergies: MORPHINE (Verified Allergy, Unknown, 04/23/18) Subjective Medicine followup for bilateral axillary and breast abscesses in the setting of hidradenitis suppurativa. She reports mild incision pain. No fever, chills, nausea, vomiting. Objective Last 24 Hour Vital Signs Date Time Temp Pulse Resp B/P (MAP) Pulse Ox O2 Delivery O2 Flow Rate FiO2 04/25/18 16:09 19 04/25/18 12:45 208.0 74 20 99 04/25/18 12:00 97.7 52 15 117/73 (88) 99 97.7 04/25/18 12:00 19 04/25/18 08:00 19 04/25/18 07:59 98.3 87 17 143/72 (95) 99 98.3 04/25/18 07:25 Room Air 04/25/18 04:00 19 04/25/18 04:00 97.9 58 18 108/50 (69) 98 97.9 04/25/18 00:00 97.8 86 18 113/56 (75) 98 97.8 04/25/18 00:00 18 04/24/18 21:00 Room Air 04/24/18 20:00 97.4 56 18 108/64 (79) 99 97.4 04/24/18 20:00 18 Intake and Output 04/24/18 04/25/18 19:00 07:00 Intake Total 1810 ml 750 ml Output Total 50 ml Balance 1760 ml 750 ml Intake Oral 360 ml 300 ml IV Total 1450 ml 450 ml Output Estimated Blood Loss 50 ml # Voids 3 3 Laboratory Tests 04/25/18 05:00: Vancomycin Level Trough 10.0 Height (Feet): 5 Height (Inches): 5.00 Weight (Pounds): 243 General Appearance: no apparent distress, alert EENT: normal ENT inspection Neck: non-tender, normal alignment, supple Cardiovascular: normal rate, regular rhythm Respiratory/Chest: lungs clear, normal breath sounds, no respiratory distress Abdomen: non tender, soft Extremities: non-tender Neurologic: direct care specialist II-XII grossly normal, no motor/sensory deficits, alert, oriented x 3 Skin: other - Bilateral breast dressings, clean, dry and intact Ayo Rodriguez MD Apr 25, 2018 16:20
[2018-04-25] MEDS: cefTRIAXone 1 GM in D5W 55 ML IVPB SCH (16:29)
[2018-04-25] MEDS: NovoLOG Insulin Flexpen SUBQ SCH ×2 (17:23→21:19)
--- NOTE | 2018-04-25 18:15 | Infectious Diseases Prog Note ---
Assessment/Plan Assessment/Plan ASSESSMENT AND PLAN: 1. bilateral axilla and breast hidradenitis suppurativa with abscesses/ cellulitis/wound infection/drainage - s/p debridement, plan on wound closure - continue vancomycin and ceftriaxone - monitor labs periodically 2. Obesity. 3. Prediabetes or type 2 diabetes mellitus. 4. History of hidradenitis suppurativa x10 years. 5. History of antibiotic use. 6. She has history of inguinal surgery in the past. 7. Allergic to morphine. 8. Social history is negative. 9. Family history positive for fibromyalgia and diabetes. 10. Case was discussed with RN. 11. MAR was noted. 12. Continue treatment per primary consultants. Subjective Constitutional: Reports: fatigue; Denies: fever HEENT: Denies: congestion Respiratory: Denies: shortness of breath Cardiovascular: Denies: chest pain Gastrointestinal/Abdominal: Denies: nausea, vomiting, diarrhea Genitourinary: Reports: other - no smith Neurologic: Denies: headache Psychiatric: Denies: depression Skin: Denies: rash Hematologic: Denies: bleeding Musculoskeletal: Reports: pain - controlled Allergies: Coded Allergies: MORPHINE (Verified Allergy, Unknown, 04/23/18) Objective Vital Signs Last 24 Hour Vital Signs Date Time Temp Pulse Resp B/P (MAP) Pulse Ox O2 Delivery O2 Flow Rate FiO2 04/25/18 16:09 19 04/25/18 16:00 98.2 67 17 109/65 (80) 98 98.2 04/25/18 12:45 208.0 74 20 99 04/25/18 12:00 97.7 52 15 117/73 (88) 99 97.7 04/25/18 12:00 19 04/25/18 08:00 19 04/25/18 07:59 98.3 87 17 143/72 (95) 99 98.3 04/25/18 07:25 Room Air 04/25/18 04:00 19 04/25/18 04:00 97.9 58 18 108/50 (69) 98 97.9 04/25/18 00:00 97.8 86 18 113/56 (75) 98 97.8 04/25/18 00:00 18 04/24/18 21:00 Room Air 04/24/18 20:00 97.4 56 18 108/64 (79) 99 97.4 04/24/18 20:00 18 Height (Feet): 5 Height (Inches): 5.00 Weight (Pounds): 243 General Appearance: no acute distress HEENT: normocephalic, atraumatic, anicteric, mucous membranes moist Respiratory/Chest: lungs clear, normal breath sounds, no respiratory distress, no accessory muscle use Cardiovascular: normal rate, regular rhythm, no gallop/murmur, no JVD Abdomen: normal bowel sounds, soft, non tender, no organomegaly, non distended Genitourinary: other - no smith Extremities: no cyanosis Skin: no rash Neurologic/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: 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 administrative officer II-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 grossly normal, alert, oriented x 3, responsive Lymphatic: no neck adenopathy Musculoskeletal: no effusion Objective none none Labs Test 04/23/18 13:40 04/24/18 06:00 04/24/18 06:35 04/25/18 05:00 White Blood Count 9.9 K/UL (4.8-10.8) 9.4 K/UL (4.8-10.8) Red Blood Count 4.77 M/UL (4.20-5.40) 4.56 M/UL (4.20-5.40) Hemoglobin 13.5 G/DL (12.0-16.0) 13.1 G/DL (12.0-16.0) Hematocrit 39.6 % (37.0-47.0) 37.8 % (37.0-47.0) Mean Corpuscular Volume 83 FL (80-99) 83 FL (80-99) Mean Corpuscular Hemoglobin 28.4 PG (27.0-31.0) 28.8 PG (27.0-31.0) Mean Corpuscular Hemoglobin Concent 34.2 G/DL (32.0-36.0) 34.7 G/DL (32.0-36.0) Red Cell Distribution Width 10.2 % (11.6-14.8) 10.2 % (11.6-14.8) Platelet Count 284 K/UL (150-450) 263 K/UL (150-450) Mean Platelet Volume 7.1 FL (6.5-10.1) 7.4 FL (6.5-10.1) Neutrophils (%) (Auto) 60.1 % (45.0-75.0) 56.0 % (45.0-75.0) Lymphocytes (%) (Auto) 22.9 % (20.0-45.0) 27.7 % (20.0-45.0) Monocytes (%) (Auto) 5.7 % (1.0-10.0) 6.9 % (1.0-10.0) Eosinophils (%) (Auto) 10.4 % (0.0-3.0) 8.5 % (0.0-3.0) Basophils (%) (Auto) 1.0 % (0.0-2.0) 0.8 % (0.0-2.0) Prothrombin Time 11.1 SEC (9.30-11.50) Prothromb Time International Ratio 1.1 (0.9-1.1) Activated Partial Thromboplast Time 35 SEC (23-33) Sodium Level 138 MMOL/L (136-145) 137 MMOL/L (136-145) Potassium Level 3.7 MMOL/L (3.5-5.1) 3.7 MMOL/L (3.5-5.1) Chloride Level 102 MMOL/L (98-107) 103 MMOL/L (98-107) Carbon Dioxide Level 24 MMOL/L (21-32) 22 MMOL/L (21-32) Anion Gap 12 mmol/L (5-15) 12 mmol/L (5-15) Blood Urea Nitrogen 11 mg/dL (7-18) 9 mg/dL (7-18) Creatinine 0.9 MG/DL (0.55-1.30) 0.8 MG/DL (0.55-1.30) Estimat Glomerular Filtration Rate > 60 mL/min (>60) > 60 mL/min (>60) Glucose Level 168 MG/DL (74-106) 165 MG/DL (74-106) Calcium Level 9.3 MG/DL (8.5-10.1) 8.8 MG/DL (8.5-10.1) Total Bilirubin 0.9 MG/DL (0.2-1.0) Aspartate Amino Transf (AST/SGOT) 47 U/L (15-37) Alanine Aminotransferase (ALT/SGPT) 61 U/L (12-78) Alkaline Phosphatase 73 U/L (46-116) Total Protein 8.0 G/DL (6.4-8.2) Albumin 3.9 G/DL (3.4-5.0) Globulin 4.1 g/dL Albumin/Globulin Ratio 1.0 (1.0-2.7) Urine HCG, Qualitative Negative (NEGATIVE) Vancomycin Level Trough 10.0 ug/mL (5.0-12.0) Laboratory Tests Test 04/25/18 05:00 Vancomycin Level Trough 10.0 ug/mL (5.0-12.0) Current Medications Medications (Trade) Dose Ordered Sig/Eloisa Route PRN Reason Start Time Stop Time Status Last Admin Dose Admin Acetaminophen (Tylenol) 650 mg Q4H PRN ORAL FEVER 04/24/18 09:30 05/24/18 09:29 04/25/18 16:28 Al Hydroxide/Mg Hydroxide (Mylanta II) 30 ml Q6H PRN ORAL dyspepsia 04/23/18 14:30 05/23/18 14:29 Alprazolam (Xanax) 0.5 mg TIDPRN PRN ORAL For Anxiety 04/23/18 19:30 04/30/18 19:29 04/24/18 21:01 Ceftriaxone Sodium 1 gm/ Dextrose 55 ml @ 110 mls/hr Q24H IVPB 04/23/18 17:00 04/30/18 16:59 04/25/18 16:29 Chlorhexidine Gluconate (Rose-Hex 2%) 1 applic DAILY@2000 TOPIC 04/25/18 20:00 05/25/18 19:59 Dextrose (Dextrose 50%) 25 ml Q30M PRN IV Hypoglycemia 04/25/18 16:15 05/25/18 16:14 Dextrose (Dextrose 50%) 50 ml Q30M PRN IV Hypoglycemia 04/25/18 16:15 05/25/18 16:14 Diphenhydramine HCl (Benadryl) 12.5 mg Q6H PRN IVP Itching/Pruritis 04/24/18 09:30 05/24/18 09:29 04/25/18 11:00 Docusate Sodium (Colace) 100 mg TWICE A DAY ORAL 04/24/18 18:00 05/24/18 17:59 04/25/18 17:24 Heparin Sodium (Porcine) (Heparin 5000 units/ml) 5,000 units EVERY 12 HOURS SUBQ 04/24/18 21:00 05/24/18 20:59 04/25/18 08:47 Heparin Sodium/ Sodium Chloride (Heparin 2000 units/Ns 1000ml premix) 2,000 unit ONCE PRN INJ PICC PLACEMENT 04/25/18 09:00 04/26/18 23:59 Hydromorphone HCl 30 ml @ 0 mls/hr Q24H PRN IV For Pain 04/24/18 12:30 04/26/18 12:29 04/24/18 12:37 Insulin Aspart (NovoLOG) BEFORE MEALS AND HS SUBQ 04/25/18 16:30 05/25/18 16:29 04/25/18 17:23 Lidocaine HCl (Xylocaine 1% 30ml) 30 ml ONCE PRN INJ PICC PLACEMENT 04/25/18 09:00 04/26/18 23:59 Miscellaneous Medication (FITNESS INSTRUCTOR Rate Change) 1 ea DAILY PRN MISC rate change 04/24/18 09:30 04/26/18 09:29 Miscellaneous Medication (FITNESS INSTRUCTOR shift volume) 1 ea Q12HR@0700,1900 MISC 04/24/18 19:00 04/26/18 18:59 04/25/18 07:18 Ondansetron HCl (Zofran) 4 mg Q6H PRN IVP Nausea & Vomiting 04/24/18 13:26 05/24/18 13:25 Phenol/Menthol (Chloraseptic) 1 spray Q3H PRN ORAL For Pain(Throat) 04/25/18 08:58 05/25/18 08:57 Polyethylene Glycol (Miralax) 17 gm HSPRN PRN ORAL Constipation 04/23/18 14:30 05/23/18 14:29 Sodium Chloride 1,000 ml @ 50 mls/hr Q20H IV 04/23/18 15:04 05/23/18 15:03 04/24/18 14:11 Temazepam (Restoril) 7.5 mg DAILYPRN PRN ORAL Insomnia 04/24/18 09:30 05/01/18 09:29 Vancomycin HCl (Vanco rx to dose) 1 ea DAILY PRN MISC VANCO PER PHARMACY 04/23/18 16:00 05/23/18 15:59 Vancomycin HCl/ Dextrose 250 ml @ 166.667 mls/hr Q12H IVPB 04/23/18 18:00 04/28/18 17:59 04/25/18 17:19 Brandt Mcrae MD Apr 25, 2018 18:15
[2018-04-25 20:00] VITALS: BP 122/94
[2018-04-25] MEDS: Dyna-Hex 2% Top Sol 2oz TOPIC SCH (21:12)
[2018-04-25] MEDS: ALPRAZolam 0.5mg tab ORAL PRN (21:21)
[2018-04-25] MEDS: PCA HYDROmorphone 1mg/ml 30 ML IV PRN (23:50)
[2018-04-26] VITALS (15 sets, daily range): BP systolic 103–157; BP diastolic 63–91
[2018-04-26] MEDS: Vancomycin 1250mg/D5W 250ml IVPB SCH ×2 (05:57→18:15)
[2018-04-26] MEDS: NovoLOG Insulin Flexpen SUBQ SCH ×4 (06:01→21:12)
[2018-04-26] MEDS: PCA shift volume MISC SCH ×2 (07:18→19:00)
[2018-04-26] MEDS: Docusate 100mg cap ORAL SCH ×2 (08:46→17:08)
[2018-04-26] MEDS: Heparin 5000 units/ml inj SUBQ SCH ×2 (09:00→21:12)
[2018-04-26 09:10] LABS: BASOPHILS % (AUTO) 0.9 % (0.0-2.0); EOSINOPHILS % (AUTO) 12.6 % (0.0-3.0); HEMATOCRIT 35.4 % (37.0-47.0); HEMOGLOBIN 12.2 G/DL (12.0-16.0); LYMPHOCYTES % (AUTO) 23.5 % (20.0-45.0); MEAN CORPUSCULAR VOLUME 83 FL (80-99); MONOCYTES % (AUTO) 6.4 % (1.0-10.0); NEUTROPHILS % (AUTO) 56.7 % (45.0-75.0); PLATELET COUNT 235 K/UL (150-450); RED BLOOD COUNT 4.28 M/UL (4.20-5.40); RED CELL DISTRIBUTION WIDTH 10.1 % (11.6-14.8); WHITE BLOOD COUNT 8.8 K/UL (4.8-10.8)
[2018-04-26] MEDS ORDERED: Midazolam 2mg/2ml Inj ONE (09:17)
[2018-04-26] MEDS ORDERED: fentaNYL 100 mcg/2 mL IV ONE (09:17)
[2018-04-26] MEDS ORDERED: Ketamine 500mg Inj ONE (09:17)
[2018-04-26] MEDS ORDERED: Sodium Chloride 10ml vial INJ ONE ×2 (09:17→10:33)
[2018-04-26] MEDS ORDERED: Lidocaine 1% MPF 10mg/ml 5ml ONE (09:17)
[2018-04-26] MEDS ORDERED: Propofol 200mg/20ml IV ONE (09:17)
[2018-04-26 09:22] LABS: ANION GAP 6 mmol/L (5-15); BLOOD UREA NITROGEN 3 mg/dL (7-18); CALCIUM 8.7 MG/DL (8.5-10.1); CARBON DIOXIDE 28 MMOL/L (21-32); CHLORIDE 103 MMOL/L (98-107); CREATININE 0.7 MG/DL (0.55-1.30); POTASSIUM 3.8 MMOL/L (3.5-5.1); SODIUM 137 MMOL/L (136-145)
[2018-04-26] MEDS ORDERED: NeoSporin Gu Irrig 1ml Amp IRRIG ONE (09:29)
[2018-04-26] MEDS ORDERED: Lidocaine 1% 10mg/ml/Epi 0.005mg/ml 30ml vial INJ ONE (09:29)
[2018-04-26] MEDS ORDERED: EPINEPHrine 1mg/1ml Amp ONE (09:29)
[2018-04-26] MEDS ORDERED: Bacitracin 50000 Units Vial ONE (09:29)
--- NOTE | 2018-04-26 09:30 | Consultation ---
DATE OF CONSULTATION: 04/24/2018 CONSULTING PHYSICIAN: Edilma Jiang M.D. ADMITTING PHYSICIAN: Dr Rudolph. ADMITTING DIAGNOSIS: Bilateral breast and axillary abscesses. HISTORY OF PRESENT ILLNESS: This is a 22-year-old female, who presented to the emergency room with pain and drainage from bilateral breasts and axilla secondary to infected hidradenitis. She was started on IV antibiotics by the medical team and admitted and I am seeing the patient in evaluation for debridement and reconstruction of her diseased areas. PAST MEDICAL HISTORY: Significant for hidradenitis and morbid obesity. PAST SURGICAL HISTORY: Significant for multiple incisions and drainage and attempted excision and removal of the hidradenitis. ALLERGIES: Include morphine. PHYSICAL EXAMINATION: GENERAL: The patient is alert and oriented x3. HEART: Regular rate and rhythm. ABDOMEN: Soft, nontender, and nondistended. EXTREMITIES: Examination of the trunk reveals multiple abscesses in the lower pole of the breast as well as some in the upper inner quadrant of the breast, multiple areas of abscesses in the bilateral axilla, and multiple abscesses in the groins. ASSESSMENT AND PLAN: This is a 22-year-old female with advanced hidradenitis affecting her breast, axilla, and groin area. This would be classified as grade 3 [id number] hidradenitis. The plan will be to perform debridement of the affected areas with staged reconstruction. Given the multitude of areas on this particular admission, the patient will most likely only undergo treatment of her axilla as well as her breasts and the groin would have to be deferred to a later date. She understands that the plan will require a staged approach with debridement/partial mastectomy to remove the affected areas of her breast followed by reconstruction and similarly for the axilla, she will require a staged excision of the infected tissue followed by reconstruction. Edilma Jiang M.D. DR: NATASHA JOB#: [id number] CC: HARPER
--- NOTE | 2018-04-26 09:30 | Operative Note - Dictated ---
DATE OF OPERATION: 04/24/2018 PREOPERATIVE DIAGNOSIS: Bilateral breast abscesses secondary to hidradenitis. POSTOPERATIVE DIAGNOSIS: Bilateral breast abscesses secondary to hidradenitis. PROCEDURES: 1. Right breast partial mastectomy. 2. Left breast partial mastectomy. 3. Elevation of a right-sided chest wall/breast Shemar flap for staged closure of right breast wound. 4. Elevation of a left chest wall/breast Shemar flap for staged closure of left breast wound. SURGEON: Edilma Jiang M.D. OCCUP THER: Camille Castellon M.D. ANESTHESIA: General. COMPLICATIONS: None. DRAINS: None. DISPOSITION: Stable to the recovery room. INDICATIONS FOR SURGERY: This is a 22-year-old female admitted through the emergency room with bilateral breast and axillary abscesses secondary to advanced infected hidradenitis. She has failed all medical management and has been in chronic pain with drainage and more acutely has had significant tenderness to the breast and on exam she was noted to have multiple areas that required excision. Given the size of these areas in both breasts that were randomly dispersed, but mostly in the lower inferior pole of the breast, I felt that she would be an appropriate candidate for a lower breast partial mastectomy followed by a staged reconstruction by elevation of Shemar flaps in the inferior breast pole and chest wall junction. She understood the risks and benefits of surgery and agreed to proceed. DETAILS OF THE OPERATION: The patient was brought to the operating room and laid in the supine position on the operating room table. Her chest was prepped and draped in a sterile and usual fashion. The patient had large breasts with most of her disease and abscesses isolated to the lower pole of the breast. This area was marked out with an elliptical type of incision to be made, and there were also some smaller abscesses in the inner outer quadrants of both breasts. We first began on the right breast where the area of disease was measured after the markings were made, and this measured 4 x 12 cm. A 15 blade was then used to make the skin incision and the partial mastectomy was carried down and performed using the electrocautery. This defect that resulted was not ideal for primary closure, as such a Shemar flap was elevated based off of the chest wall breast inframammary fold junction. This was elevated based off of perforators of the superior epigastric artery for dimension of the flap after mobilization were 12 x 5 cm. This allowed for full tension-free closure of the wound. At this point, the wounds were then all copiously irrigated with pulse lavage and hemostasis was achieved. We then turned our attention to the contralateral breast where again there was some two abscesses in the upper inner quadrant, which were removed and some in the lower, and most were localized to the lower pole of the breast as was the other side. An elliptical type of incision was also designed on this side. This one measured 10 x 4 cm and after the markings were made a 15 blade was used to make the skin incision and dissection was carried down with electrocautery all the way to the level of the deep breast tissue and again as was done on the other side, a Shemar flap was elevated at the junction of the inframammary fold and chest wall. The flap was elevated based off of perforators of the superior epigastric artery and this flap measurements were 10 x 5 cm and it was noted that the edges of the wound to be brought here without any tension. The wound on this side were also copiously irrigated with pulse lavage. Even though the flaps were elevated at this time it was felt that given the presence of the infection it would not be nieto to perform definitive flap closure of the wound. As such, the wounds were then packed following hemostasis with a plan of bringing the patient back to the operating room in 48 hours to perform definitive flap inset and closure of the wound. She tolerated the procedure well. There were no complications. All sponge counts were correct at the end of the case. Edilma Jiang M.D. DR: JEAN-PIERRE JOB#: [id number] CC:
[2018-04-26] MEDS ORDERED: Succinylcholine 20mg/ml 10ml vial ONE (09:40)
[2018-04-26] MEDS ORDERED: Zemuron 50mg/5ml Inj IV ONE (09:40)
--- NOTE | 2018-04-26 09:53 | Operative Note - PDOC ---
Operative Note Operative Note Procedure: Bilateral breast debridement/partial mastectomy Post-op Diagnosis: same as pre-op Surgeon: batool Straightedge Man: johnny Anesthesia: general Specimen: yes Complications: none Condition: stable Estimated Blood Loss: none Drains: none Implant(s) used?: No ANNITA PENA Apr 26, 2018 09:53
--- NOTE | 2018-04-26 09:54 | Pre-Procedure Note/Attestation ---
Pre-Procedure Note/Attestation Complete Prior to Procedure Planned Procedure: bilateral Procedure Narrative: Bilateral breast wound closure and axillary debridement Attestation I attest that I discussed the nature of the procedure; its benefits; risks and complications; and alternatives (and the risks and benefits of such alternatives ), prior to the procedure, with the patient (or the patient's legal goodwill representative). I attest that, if there was a reasonable possibility of needing a blood transfusion, the patient (or the patient's legal goodwill representative) was given the [facility] standardized written summary, pursuant to the [place] Blood Safety Act ([place] Health and Safety Code # 1645, as amended). I attest that I re-evaluated the patient just prior to the surgery and that there has been no change in the patient's H&P, except as documented below: ANNITA PENA Apr 26, 2018 09:53
[2018-04-26] MEDS ORDERED: LR 1000ml ONE (10:00)
[2018-04-26] MEDS ORDERED: Rate Change PCA 1 Each MISC PRN (10:00)
[2018-04-26] MEDS ORDERED: Zolpidem 5mg tab ORAL PRN ×2 (10:00→10:05)
[2018-04-26] MEDS ORDERED: NS Irrig 1000ml ONE (10:00)
[2018-04-26] MEDS ORDERED: Sterile Water Irrig 1000ml IRRIG ONE (10:00)
[2018-04-26] MEDS ORDERED: PCA Education Pamphlet MISC ONE (10:00)
[2018-04-26] MEDS ORDERED: PCA HYDROmorphone 1mg/ml 30 ML IV PRN (10:03)
[2018-04-26] MEDS ORDERED: Morphine Sulfate 10mg/ml Inj ONE (10:32)
[2018-04-26] MEDS ORDERED: Neostigmine 1mg/ml 10ml Inj ONE (10:33)
[2018-04-26] MEDS ORDERED: Ketorolac 30mg Inj ONE (10:33)
[2018-04-26] MEDS ORDERED: Glycopyrrolate 0.2mg/ml 1ml Vial ONE (10:33)
[2018-04-26] MEDS ORDERED: LR 1000ml 1,000 ML IVLG SCH (10:48)
--- NOTE | 2018-04-26 10:48 | Anethesia Preoperative Eval ---
Anesthesia Pre-op PMH/ROS General Date of Evaluation: Apr 26, 2018 Time of Evaluation: 09:35 Anesthesiologist: Sandy ASA Score: ASA 2 Mallampati Score Class I : Soft palate, uvula, fauces, pillars visible Class II: Soft palate, uvula, fauces visible Class III: Soft palate, base of uvula visible Class IV: Only hard plate visible Mallampati Classification: Class III Surgeon: Apolinar Diagnosis: Recurrent HS Surgical Procedure: Revision of bilateral breaqsts wounds and excision of axillary lesions Anesthesia History: none Family History: no anesthesia problems Allergies: Coded Allergies: MORPHINE (Verified Allergy, Unknown, 04/23/18) Past Medical History Cardiovascular: Denies: HTN, CAD, DC, valve dz, arrhythmia, other Pulmonary: Denies: asthma, COPD, MARA, other Gastrointestinal/Genitourinary: Reports: GERD - mild; Denies: CRI, ESRD, other Neurologic/Psychiatric: Reports: depression/anxiety Endocrine: Denies: DM, hypothyroidism, steroids, other HEENT: Denies: cataract (L), cataract (R), glaucoma, MOAPA (L), MOAPA (R), other Hematology/Immune: Denies: anemia, DVT, bleeding disorder, other Musculoskeletal/Integumentary: Reports: other - recurrent HS Other: obesity PMH Narrative: as above PSxH Narrative: See H&P Anesthesia Pre-op Phys. Exam Physician Exam Last Vital Signs Date Time Temp Pulse Resp B/P (MAP) Pulse Ox O2 Delivery O2 Flow Rate FiO2 04/26/18 08:00 18 04/26/18 08:00 98.2 90 117/70 (86) 99 98.2 04/25/18 21:00 Room Air 04/24/18 12:55 3 Constitutional: NAD Neurologic: CN 2-12 intact Cardiovascular: RRR, no M/R/G Respiratory: CTA Gastrointestinal: other - obesity Airway Exam Mallampati Score: Class III MO: full Neck: short ROM: full Teeth: intact Dentures: no upper, no lower Anesthesia Pre-op A/P Labs Hematology Test 04/26/18 08:45 White Blood Count 8.8 K/UL (4.8-10.8) Red Blood Count 4.28 M/UL (4.20-5.40) Hemoglobin 12.2 G/DL (12.0-16.0) Hematocrit 35.4 % (37.0-47.0) L Mean Corpuscular Volume 83 FL (80-99) Mean Corpuscular Hemoglobin 28.5 PG (27.0-31.0) Mean Corpuscular Hemoglobin Concent 34.4 G/DL (32.0-36.0) Red Cell Distribution Width 10.1 % (11.6-14.8) L Platelet Count 235 K/UL (150-450) Mean Platelet Volume 7.0 FL (6.5-10.1) Neutrophils (%) (Auto) 56.7 % (45.0-75.0) Lymphocytes (%) (Auto) 23.5 % (20.0-45.0) Monocytes (%) (Auto) 6.4 % (1.0-10.0) Eosinophils (%) (Auto) 12.6 % (0.0-3.0) H Basophils (%) (Auto) 0.9 % (0.0-2.0) Chemistry Test 04/26/18 08:45 Sodium Level 137 MMOL/L (136-145) Potassium Level 3.8 MMOL/L (3.5-5.1) Chloride Level 103 MMOL/L (98-107) Carbon Dioxide Level 28 MMOL/L (21-32) Anion Gap 6 mmol/L (5-15) Blood Urea Nitrogen 3 mg/dL (7-18) L Creatinine 0.7 MG/DL (0.55-1.30) Estimat Glomerular Filtration Rate > 60 mL/min (>60) Glucose Level 128 MG/DL (74-106) H Calcium Level 8.7 MG/DL (8.5-10.1) Ismael Delgado MD Apr 26, 2018 10:48
[2018-04-26] MEDS ORDERED: Ketorolac 30mg Inj IV PRN ×2 (11:00→21:45)
[2018-04-26] MEDS ORDERED: Meperidine 50mg/ml Inj(FOR RIGORS ONLY) IV PRN (11:00)
[2018-04-26] MEDS ORDERED: DiphenhydrAMINE 50mg/ml Inj IVP PRN (11:00)
[2018-04-26] MEDS ORDERED: Metoclopramide 10mg/2ml Inj IVP PRN (11:00)
[2018-04-26] MEDS ORDERED: Midazolam 2mg/2ml Inj IVP PRN (11:00)
[2018-04-26] MEDS ORDERED: fentaNYL 100 mcg/2 mL IV PRN (11:00)
--- NOTE | 2018-04-26 12:27 | Operative Note - PDOC ---
Operative Note Operative Note Procedure: Bilateral breast wound closure and axillary tissue debridement and flap elevation Post-op Diagnosis: same as pre-op Surgeon: Apolinar Editor At Large: Cande Anesthesia: general Specimen: yes Complications: none Condition: stable Estimated Blood Loss: minimal Drains: AMRIT Implant(s) used?: No ANNITA PENA Apr 26, 2018 12:27
--- NOTE | 2018-04-26 12:45 | Immediate Post-Op Evaluation ---
Immediate Post-Op Evalulation Immediate Post-Op Evalulation Procedure: Revision and closure of bilateral breasts wounds and excision of axillary l Date of Evaluation: Apr 26, 2018 Time of Evaluation: 12:44 IV Fluids: 800 Blood Products: none Estimated Blood Loss: 50 Urinary Output: none Blood Pressure Systolic: 146 Blood Pressure Diastolic: 78 Pulse Rate: 76 Respiratory Rate: 20 O2 Sat by Pulse Oximetry: 99 Temperature (Fahrenheit): 97.8 Pain Score (1-10): 1 Nausea: No Vomiting: No Complications none Patient Status: reacts, patent, none Hydration Status: adequate Ismael Delgado MD Apr 26, 2018 12:45
[2018-04-26] MEDS: PCA HYDROmorphone 1mg/ml 30 ML IV PRN (12:47)
--- NOTE | 2018-04-26 16:08 | 48 Hour Post Anesthesia Eval ---
Post Anesthesia Evaluation Procedure: Revision and closure of bilateral breasts wounds and excision of axillary l Date of Evaluation: Apr 26, 2018 Time of Evaluation: 14:56 Blood Pressure Systolic: 135 0: 73 Pulse Rate: 90 Respiratory Rate: 18 Temperature (Fahrenheit): 98 O2 Sat by Pulse Oximetry: 100 Airway: patent Nausea: No Vomiting: No Pain Intensity: 2 Hydration Status: adequate Cardiopulmonary Status: Stable Follow-up Care/Observations: 0 Post-Anesthesia Complications: 0 Follow-up care needed: N/A Mario Chacon MD Apr 26, 2018 16:08
[2018-04-26] MEDS: cefTRIAXone 1 GM in D5W 55 ML IVPB SCH (17:08)
--- NOTE | 2018-04-26 17:15 | Operative Note - Dictated ---
DATE OF OPERATION: 04/26/2018 PREOPERATIVE DIAGNOSES: 1. Bilateral open breast wounds, status post partial mastectomy. 2. Bilateral axillary tissue hidradenitis, grade 3 infected. POSTOPERATIVE DIAGNOSES: 1. Bilateral open breast wounds, status post partial mastectomy. 2. Bilateral axillary tissue hidradenitis, grade 3 infected. PROCEDURES: 1. Closure of right breast tissue/other technique, status post partial mastectomy with flap elevation. 2. Closure of left breast wound, status post partial mastectomy using other technique/flap elevation. 3. Radical excision of left axillary tissue. 4. Elevation of an anterior chest wall flap for staged closure of left axillary wound. 5. Radical excision of right axillary tissue. 6. Elevation of an anterior chest wall flap for staged closure of right axillary tissue wound. SURGEON: Edilma Jiang M.D. FIELD CONTROL INSPECTOR: Camille Castellon M.D. ANESTHESIA: General. COMPLICATIONS: None. DRAINS: Included a size #15 AMRIT in each breast. EBL: 25 mL. COMPLICATIONS: None. DISPOSITION: Stable to the recovery room. INDICATIONS FOR SURGERY: This is a 22-year-old female who is now 48 hours status post partial mastectomy for infected hidradenitis of her bilateral breasts. She has been undergoing local wound care over the past 48 hours and is now prepared for definitive flap closure of her wound. In addition, we were planning on addressing the infected axillary hidradenitis grade 3 in both her armpits axilla region with flap elevation with plan for definitive closure of her axillary wounds within 72 hours. She understands the risks and benefits of surgery and agrees to proceed. DETAILS OF THE OPERATION: The patient was brought to the operating room. Her chest and bilateral axillae were prepped and draped in a sterile and usual fashion. We first began by copiously irrigating the breast wounds to summarize there were total of four, two large inferior pole of the breast wound on both sides, the one on the right measuring approximately 10 x 4 cm and one on the left measuring 8 x 4 cm. There were also inner upper quadrant wound to the breast which measured approximately 5 x 4 cm each. We had previously elevated Shemar flaps for closure of these inferior pole breast wounds as such following the irrigation and hemostasis we placed a size 15 AMRIT drains within both breast wounds in the inferior pole and began closing the breast wound using the Shemar flap that had been previously elevated which would allow this to qualify as closure of the breast wound/reconstruction using other technique, the technique being Shemar flap elevation. Once the flaps were elevated, we were able to close both breasts, first on the right. We closed the breast wound using 2-0 and 3-0 Vicryl sutures and a 3-0 Monocryl was used to close the skin. The upper inner quadrant breast wound was also closed in a similar fashion, however a drain was not placed for this wound. The Shemar flap perfusion was based off of perforators of the superior epigastric artery. We then turned our attention to the contralateral left breast wound and similarly the Shemar flap that had been previously elevated was then used to close the wound over a AMRIT drain using 2-0 and 3-0 Vicryl sutures for the closure as well as a 3-0 Monocryl to close the skin. In a similar fashion, the upper inner quadrant breast wound was closed at this time without a drain for this one using 2-0 and 3-0 Vicryl sutures and a 3-0 Monocryl was used to close the skin. As for the other side, the perfusion of the Shemar flap was based off of perforators of the superior epigastric artery. Once both breast wounds were closed, we then turned our attention first to the left axillary region where we preoperatively marked and inverted L-shaped type of region that needed to be removed. A #10 blade was used to make the skin incision. The dissection was carried down to the level of the axillary fascia to completely remove this infected tissue. The defect that resulted measured approximately 20 x 6 cm and was not amenable to primary closure. As such, an anterior chest wall flap based off of perforators of the thoracoacromial artery was elevated. The total measurement of this flap was 20 x 5 cm to allow for advancement. The wound was copiously irrigated with pulse lavage. We then turned our attention to the right axillary wound. In a similar fashion, an L-shaped type of incision was designed to encompass the infected hidradenitis. A # 10-blade was used to make the incision around the infected tissue and dissection was carried down deep down to the axillary fascia. This resulted in a defect that measured 22 x 6 cm. Again not amenable to primary closure. As such, an anterior chest wall flap based off of perforators of the thoracoacromial artery was elevated. This measured 22 cm in length and 4 cm in width as was done on the other side. Hemostasis was achieved following copious irrigation with pulse lavage. Surgicel was then placed in the wound bed and because this was an infected part of the case we decided that it would not be appropriate to definitively close the wound. As such, the wound was packed. Part of the wounds on both sides was closed with warren. Following packing, dressings were applied with a plan of bringing the patient back to the operating room in 72 hours for definitive flap advancement and closure of her wounds. All needle and sponge counts were correct. The patient tolerated the procedure well. There were no complications. Edilma Jiang M.D. DR: Burak JOB#: [id number] CC:
--- NOTE | 2018-04-26 18:06 | General Progress Note ---
Assessment/Plan Assessment/Plan 22 year old woman with history of hidradenitis suppurativa, obesity, diet controlled diabetes, fibromyalgia who presented with worsening multiple bilateral axillary and breast draining abscesses associated with redness, pain and subjective fever. Multiple bilateral axillary and breast abscesses, continue IV vancomycin and ceftriaxone and monitor vancomycin levels per pharmacy protocol. ID followup appreciated. Underwent surgical debridement of breast tissue this week, will have axillary debridement on Sunday history of obesity and diet controlled DM, lispro coverage. history of fibromyalgia, continue pain meds as needed. VTE PPx continue heparin subcutaneous Subjective Date patient seen: Apr 26, 2018 Time patient seen: 14:00 Constitutional: Denies: fever Cardiovascular: Denies: chest pain, edema Respiratory: Denies: cough, shortness of breath Gastrointestinal/Abdominal: Denies: abdomen distended, abdominal pain Genitourinary: Denies: burning, discharge Neurologic/Psychiatric: Denies: anxiety, depressed Allergies: Coded Allergies: MORPHINE (Verified Allergy, Unknown, 04/23/18) Subjective Medicine followup for bilateral axillary and breast abscesses in the setting of hidradenitis suppurativa, underwent debridement of bilateral breast abscesses with subsequent closure of the wounds today. She feels well overall, denies any fever chills. Incisional pain is controlled with RADIO SPORTSCASTER Dilaudid. Objective Last 24 Hour Vital Signs Date Time Temp Pulse Resp B/P (MAP) Pulse Ox O2 Delivery O2 Flow Rate FiO2 04/26/18 16:08 208.4 90 18 100 04/26/18 16:00 97.3 78 18 123/69 (87) 99 97.3 04/26/18 16:00 18 04/26/18 14:00 18 04/26/18 13:59 98.0 90 18 135/73 100 Nasal Cannula 3 98.0 04/26/18 13:45 98.0 04/26/18 13:45 98.0 04/26/18 13:44 79 15 137/72 100 Nasal Cannula 3 04/26/18 13:44 97.8 04/26/18 13:30 23 04/26/18 13:30 88 23 146/79 100 Nasal Cannula 3 04/26/18 13:19 97.8 04/26/18 13:19 97.8 96 22 152/82 100 Nasal Cannula 3 97.8 04/26/18 13:17 97.8 04/26/18 13:15 22 10/5/18 13:15 95 15 146/78 100 Nasal Cannula 3 04/26/18 13:00 83 19 157/81 100 Simple Mask 6 04/26/18 13:00 23 04/26/18 12:50 93 14 145/80 100 Simple Mask 6 04/26/18 12:47 97.5 04/26/18 12:47 19 04/26/18 12:45 208.0 76 20 99 04/26/18 12:40 82 19 134/76 100 Simple Mask 6 04/26/18 12:35 83 19 147/75 100 Simple Mask 6 04/26/18 12:30 97.5 85 20 147/87 100 Simple Mask 6 97.5 04/26/18 09:00 Room Air 04/26/18 08:00 18 04/26/18 08:00 98.2 90 18 117/70 (86) 99 98.2 04/26/18 05:00 98.3 72 18 105/65 (78) 98 98.3 04/26/18 04:00 18 04/26/18 00:00 98.0 81 18 103/63 (76) 97 98.0 04/26/18 00:00 18 04/25/18 21:00 Room Air 04/25/18 20:00 18 04/25/18 20:00 98.4 72 18 122/94 (103) 99 98.4 Intake and Output 04/25/18 04/26/18 19:00 07:00 Intake Total 1321.667 ml 580 ml Balance 1321.667 ml 580 ml Intake Oral 600 ml 480 ml IV Total 721.667 ml 100 ml # Voids 2 2 Laboratory Tests 04/26/18 08:45: White Blood Count 8.8, Red Blood Count 4.28, Hemoglobin 12.2, Hematocrit 35.4L, Mean Corpuscular Volume 83, Mean Corpuscular Hemoglobin 28.5, Mean Corpuscular Hemoglobin Concent 34.4, Red Cell Distribution Width 10.1L, Platelet Count 235, Mean Platelet Volume 7.0, Neutrophils (%) (Auto) 56.7, Lymphocytes (%) (Auto) 23.5, Monocytes (%) (Auto) 6.4, Eosinophils (%) (Auto) 12.6H, Basophils (%) ( Auto) 0.9, Sodium Level 137, Potassium Level 3.8, Chloride Level 103, Carbon Dioxide Level 28, Anion Gap 6, Blood Urea Nitrogen 3L, Creatinine 0.7, Estimat Glomerular Filtration Rate > 60, Glucose Level 128H, Calcium Level 8.7 Height (Feet): 5 Height (Inches): 5.00 Weight (Pounds): 243 General Appearance: alert Neck: non-tender, supple Cardiovascular: normal rate, regular rhythm Respiratory/Chest: lungs clear, normal breath sounds Abdomen: non tender, soft Extremities: non-tender, no calf tenderness Skin: other - Bilateral breast dressing clean, dry Ayo Rodriguez MD Apr 26, 2018 18:06
[2018-04-26] MEDS: Dyna-Hex 2% Top Sol 2oz TOPIC SCH (21:10)
[2018-04-27] VITALS: BP 108/58
[2018-04-27 04:00] VITALS: BP 94/58
[2018-04-27] MEDS: Vancomycin 1250mg/D5W 250ml IVPB SCH (06:15)
[2018-04-27] MEDS: NovoLOG Insulin Flexpen SUBQ SCH ×4 (06:30→20:30)
[2018-04-27] MEDS: PCA shift volume MISC SCH ×2 (07:00→19:13)
[2018-04-27] MEDS: Docusate 100mg cap ORAL SCH ×2 (08:50→17:30)
[2018-04-27] MEDS: Heparin 5000 units/ml inj SUBQ SCH ×2 (08:53→20:28)
--- NOTE | 2018-04-27 09:47 | General Progress Note ---
Progress Note Progress Note Pt seen and examined. POD # 1 and 3. Doing well. Pain well controlled. Dressings are CDI Plan for OR on Sunday. ANNITA Marti MD Apr 27, 2018 09:46
[2018-04-27] MEDS ORDERED: Tums 500mg ORAL PRN (10:00)
[2018-04-27 12:00] VITALS: BP 138/62
[2018-04-27] MEDS: Metoclopramide 10mg/2ml Inj IVP PRN (13:58)
--- NOTE | 2018-04-27 14:51 | General Progress Note ---
Assessment/Plan Assessment/Plan 22 year old woman with history of hidradenitis suppurativa, obesity, diet controlled diabetes, fibromyalgia who presented with worsening multiple bilateral axillary and breast draining abscesses associated with redness, pain and subjective fever. Multiple bilateral axillary and breast abscesses, continue IV vancomycin and ceftriaxone and monitor vancomycin levels per pharmacy protocol.Plan for axillary debridement on Sunday per my discussion with Dr. Jiang. Continue supportive care with Dilaudid YARD RIGGER. Add Reglan IV for breakthrough nausea. Check CXR and AM labs. history of obesity and diet controlled DM, lispro coverage. history of fibromyalgia, controlled. VTE PPx continue heparin subcutaneous Subjective Date patient seen: Apr 27, 2018 Time patient seen: 13:47 ROS Limited/Unobtainable: No Constitutional: Denies: chills, fever Cardiovascular: Denies: chest pain Respiratory: Denies: cough, shortness of breath Gastrointestinal/Abdominal: Denies: abdomen distended, abdominal pain Allergies: Coded Allergies: MORPHINE (Verified Allergy, Unknown, 04/23/18) Subjective Medicine followup for bilateral axillary and breast abscesses in the setting of hidradenitis suppurativa, underwent debridement of bilateral breast abscesses with subsequent closure of the wounds. Complaining of nausea and fatigue today along with poor appetite. No fever, chills, cough. No edema. Incisional pain controlled with Dilaudid YARD RIGGER. She is ambulating independently. Objective Last 24 Hour Vital Signs Date Time Temp Pulse Resp B/P (MAP) Pulse Ox O2 Delivery O2 Flow Rate FiO2 04/27/18 12:00 98.6 77 18 138/62 (87) 100 98.6 04/27/18 12:00 18 04/27/18 09:25 Room Air 04/27/18 08:00 18 04/27/18 04:00 97.8 65 18 94/58 (70) 99 97.8 04/27/18 04:00 18 04/27/18 00:00 17 04/27/18 00:00 97.9 61 18 108/58 (75) 94 97.9 04/26/18 21:00 Room Air 04/26/18 20:00 17 04/26/18 20:00 97.8 71 18 119/91 (100) 100 97.8 04/26/18 16:08 208.4 90 18 100 04/26/18 16:00 97.3 78 18 123/69 (87) 99 97.3 04/26/18 16:00 18 Intake and Output 04/26/18 04/27/18 19:00 07:00 Intake Total 1105 ml 526.667 ml Output Total 63 ml Balance 1042 ml 526.667 ml Intake Oral 360 ml IV Total 1105 ml 166.667 ml Output Drainage Total 13 ml Estimated Blood Loss 50 ml # Voids 4 Height (Feet): 5 Height (Inches): 5.00 Weight (Pounds): 243 General Appearance: no apparent distress, alert Neck: supple, normal inspection Cardiovascular: normal rate, regular rhythm Respiratory/Chest: chest wall non-tender, lungs clear, normal breath sounds, no respiratory distress Abdomen: non tender, soft Extremities: normal range of motion, non-tender Neurologic: lipcoat sprayer II-XII grossly normal, alert, oriented x 3, normal mood/affect Skin: other - Bilateral breast dressings clean and dry Ayo Rodriguez MD Apr 27, 2018 14:51
[2018-04-27 16:00] VITALS: BP 156/87
--- NOTE | 2018-04-27 16:10 | Infectious Diseases Prog Note ---
Assessment/Plan Assessment/Plan ASSESSMENT AND PLAN: 1. bilateral axilla and breast hidradenitis suppurativa with abscesses/ cellulitis/wound infection/drainage - s/p debridement, plan on wound closure - continue vancomycin and ceftriaxone - monitor labs periodically 2. Obesity. 3. Prediabetes or type 2 diabetes mellitus. 4. History of hidradenitis suppurativa x10 years. 5. History of antibiotic use. 6. She has history of inguinal surgery in the past. 7. Allergic to morphine. 8. Social history is negative. 9. Family history positive for fibromyalgia and diabetes. 10. Case was discussed with RN. 11. MAR was noted. 12. Continue treatment per primary consultants. Subjective Constitutional: Denies: fever, fatigue HEENT: Denies: congestion Respiratory: Denies: shortness of breath Cardiovascular: Denies: chest pain Gastrointestinal/Abdominal: Denies: nausea, vomiting, diarrhea Genitourinary: Reports: other - no smith Neurologic: Denies: headache Psychiatric: Denies: depression Skin: Denies: rash Hematologic: Denies: bleeding Musculoskeletal: Denies: pain Allergies: Coded Allergies: MORPHINE (Verified Allergy, Unknown, 04/23/18) Objective Vital Signs Last 24 Hour Vital Signs Date Time Temp Pulse Resp B/P (MAP) Pulse Ox O2 Delivery O2 Flow Rate FiO2 04/27/18 12:00 98.6 77 18 138/62 (87) 100 98.6 04/27/18 12:00 18 04/27/18 09:25 Room Air 04/27/18 08:00 18 04/27/18 04:00 97.8 65 18 94/58 (70) 99 97.8 04/27/18 04:00 18 04/27/18 00:00 17 04/27/18 00:00 97.9 61 18 108/58 (75) 94 97.9 04/26/18 21:00 Room Air 04/26/18 20:00 17 04/26/18 20:00 97.8 71 18 119/91 (100) 100 97.8 Height (Feet): 5 Height (Inches): 5.00 Weight (Pounds): 243 General Appearance: no acute distress HEENT: normocephalic, atraumatic, anicteric, mucous membranes moist Respiratory/Chest: lungs clear, normal breath sounds, no respiratory distress, no accessory muscle use Cardiovascular: normal rate, regular rhythm, no gallop/murmur, no JVD Abdomen: normal bowel sounds, soft, non tender, no organomegaly Genitourinary: other - no smith Extremities: no cyanosis Skin: no rash, other - wounds - covered Neurologic/Psychiatric: charge weigher II-XII grossly normal, alert, responsive Lymphatic: no neck adenopathy Musculoskeletal: no effusion Objective none none Labs Test 04/25/18 05:00 04/26/18 08:45 Vancomycin Level Trough 10.0 ug/mL (5.0-12.0) White Blood Count 8.8 K/UL (4.8-10.8) Red Blood Count 4.28 M/UL (4.20-5.40) Hemoglobin 12.2 G/DL (12.0-16.0) Hematocrit 35.4 % (37.0-47.0) Mean Corpuscular Volume 83 FL (80-99) Mean Corpuscular Hemoglobin 28.5 PG (27.0-31.0) Mean Corpuscular Hemoglobin Concent 34.4 G/DL (32.0-36.0) Red Cell Distribution Width 10.1 % (11.6-14.8) Platelet Count 235 K/UL (150-450) Mean Platelet Volume 7.0 FL (6.5-10.1) Neutrophils (%) (Auto) 56.7 % (45.0-75.0) Lymphocytes (%) (Auto) 23.5 % (20.0-45.0) Monocytes (%) (Auto) 6.4 % (1.0-10.0) Eosinophils (%) (Auto) 12.6 % (0.0-3.0) Basophils (%) (Auto) 0.9 % (0.0-2.0) Sodium Level 137 MMOL/L (136-145) Potassium Level 3.8 MMOL/L (3.5-5.1) Chloride Level 103 MMOL/L (98-107) Carbon Dioxide Level 28 MMOL/L (21-32) Anion Gap 6 mmol/L (5-15) Blood Urea Nitrogen 3 mg/dL (7-18) Creatinine 0.7 MG/DL (0.55-1.30) Estimat Glomerular Filtration Rate > 60 mL/min (>60) Glucose Level 128 MG/DL (74-106) Calcium Level 8.7 MG/DL (8.5-10.1) Current Medications Medications (Trade) Dose Ordered Sig/Eloisa Route PRN Reason Start Time Stop Time Status Last Admin Dose Admin Acetaminophen (Tylenol) 650 mg Q4H PRN ORAL FEVER 04/24/18 09:30 05/24/18 09:29 04/25/18 16:28 Al Hydroxide/Mg Hydroxide (Mylanta II) 30 ml Q6H PRN ORAL dyspepsia 04/23/18 14:30 05/23/18 14:29 Alprazolam (Xanax) 0.5 mg TIDPRN PRN ORAL For Anxiety 04/23/18 19:30 04/30/18 19:29 04/25/18 21:21 Calcium Carbonate (Tums) 500 mg Q4HR PRN ORAL HEARBURN 04/27/18 10:00 05/27/18 09:59 04/27/18 10:40 Ceftriaxone Sodium 1 gm/ Dextrose 55 ml @ 110 mls/hr Q24H IVPB 04/23/18 17:00 04/30/18 16:59 04/26/18 17:08 Chlorhexidine Gluconate (Rose-Hex 2%) 1 applic DAILY@2000 TOPIC 04/25/18 20:00 05/25/18 19:59 04/26/18 21:10 Dextrose (Dextrose 50%) 25 ml Q30M PRN IV Hypoglycemia 04/25/18 16:15 05/25/18 16:14 Dextrose (Dextrose 50%) 50 ml Q30M PRN IV Hypoglycemia 04/25/18 16:15 05/25/18 16:14 Diphenhydramine HCl (Benadryl) 12.5 mg Q6H PRN IVP Itching/Pruritis 04/24/18 09:30 05/24/18 09:29 04/25/18 11:00 Docusate Sodium (Colace) 100 mg TWICE A DAY ORAL 04/26/18 18:00 05/26/18 17:59 04/27/18 08:50 Heparin Sodium (Porcine) (Heparin 5000 units/ml) 5,000 units EVERY 12 HOURS SUBQ 04/26/18 21:00 05/26/18 20:59 04/27/18 08:53 Hydromorphone HCl 30 ml @ 0 mls/hr Q24H PRN IV For Pain 04/26/18 10:15 04/28/18 10:14 04/26/18 12:47 Hydromorphone HCl (Dilaudid) 2 mg Q3H PRN SUBQ Severe Breakthru Pain (>7) 04/26/18 17:15 05/03/18 17:14 04/27/18 00:27 Hydromorphone HCl (Dilaudid) 2 mg Q4H PRN IVP Moderate Breakthru Pain (5-7) 04/26/18 17:15 05/03/18 17:14 Insulin Aspart (NovoLOG) BEFORE MEALS AND HS SUBQ 04/25/18 16:30 05/25/18 16:29 04/27/18 12:10 Ketorolac Tromethamine (Toradol 30mg) 30 mg EVERY 12 HOURS PRN IV Breakthrough Pain 04/27/18 08:30 05/01/18 23:59 Metoclopramide HCl (Reglan) 10 mg Q8H PRN IVP Nausea & Vomiting 04/27/18 13:45 05/27/18 13:44 04/27/18 13:58 Miscellaneous Medication (TRACK AND FIELD COACH Rate Change) 1 ea DAILY PRN MISC rate change 04/26/18 10:00 04/28/18 09:59 Miscellaneous Medication (TRACK AND FIELD COACH shift volume) 1 ea Q12HR@0700,1900 MISC 04/26/18 19:00 04/28/18 18:59 04/27/18 07:00 Ondansetron HCl (Zofran) 4 mg EVERY 4 HOURS PRN IVP Nausea & Vomiting 04/27/18 08:30 05/27/18 08:29 04/27/18 11:21 Phenol/Menthol (Chloraseptic) 1 spray Q3H PRN ORAL For Pain(Throat) 04/25/18 08:58 05/25/18 08:57 Polyethylene Glycol (Miralax) 17 gm HSPRN PRN ORAL Constipation 04/23/18 14:30 05/23/18 14:29 Sodium Chloride 1,000 ml @ 50 mls/hr Q20H IV 04/23/18 15:04 05/23/18 15:03 04/26/18 15:00 Temazepam (Restoril) 7.5 mg DAILYPRN PRN ORAL Insomnia 04/24/18 09:30 05/01/18 09:29 04/25/18 22:24 Vancomycin HCl (Vanco rx to dose) 1 ea DAILY PRN MISC VANCO PER PHARMACY 04/23/18 16:00 05/23/18 15:59 Vancomycin HCl/ Dextrose 250 ml @ 166.667 mls/hr Q12H IVPB 04/23/18 18:00 04/28/18 17:59 04/27/18 06:15 Zolpidem Tartrate (Ambien) 5 mg DAILYPRN PRN ORAL Insomnia 04/26/18 10:05 05/03/18 09:59 Brandt Mcrae MD Apr 27, 2018 16:10
[2018-04-27] MEDS: cefTRIAXone 1 GM in D5W 55 ML IVPB SCH (16:39)
[2018-04-27] MEDS: Vancomycin 1250mg/D5W 250ml 250 ML IVPB SCH (17:31)
--- NOTE | 2018-04-27 18:13 | Diagnostic Imaging Report ---
EXAM: XR Chest, 1 View CLINICAL HISTORY: COUGH TECHNIQUE: Frontal view of the chest. COMPARISON: No relevant prior studies available. FINDINGS: Lungs: Unremarkable. The lungs appear clear. No confluent pulmonary opacities. Pleural space: Unremarkable. The costophrenic angles are sharp. No visible pneumothorax. Heart: Unremarkable. No cardiomegaly. Mediastinum: Unremarkable. Bones/joints: Unremarkable. Tubes, lines and devices: Left arm PICC with the catheter tip in the region of the SVC/right atrial junction. IMPRESSION: No acute findings.
[2018-04-27 20:00] VITALS: BP 148/90
[2018-04-27] MEDS: Dyna-Hex 2% Top Sol 2oz TOPIC SCH (20:18)
[2018-04-27] MEDS: Miralax 17gm pkt ORAL PRN (21:09)
[2018-04-28] VITALS: BP 98/56
[2018-04-28 04:00] VITALS: BP 101/67
[2018-04-28] MEDS: PCA HYDROmorphone 1mg/ml 30 ML IV PRN (04:44)
[2018-04-28] MEDS: Metoclopramide 10mg/2ml Inj IVP PRN (05:03)
[2018-04-28] MEDS: Vancomycin 1250mg/D5W 250ml 250 ML IVPB SCH ×2 (05:03→18:10)
[2018-04-28] MEDS: Ketorolac 30mg Inj IV PRN ×2 (05:29→23:24)
[2018-04-28] MEDS: NovoLOG Insulin Flexpen SUBQ SCH ×4 (06:30→21:00)
[2018-04-28] MEDS: PCA shift volume MISC SCH (07:04)
[2018-04-28 07:26] LABS: BASOPHILS % (AUTO) 0.7 % (0.0-2.0); EOSINOPHILS % (AUTO) 10.5 % (0.0-3.0); HEMATOCRIT 36.8 % (37.0-47.0); HEMOGLOBIN 13.2 G/DL (12.0-16.0); LYMPHOCYTES % (AUTO) 25.5 % (20.0-45.0); MEAN CORPUSCULAR VOLUME 82 FL (80-99); MONOCYTES % (AUTO) 6.8 % (1.0-10.0); NEUTROPHILS % (AUTO) 56.5 % (45.0-75.0); PLATELET COUNT 255 K/UL (150-450); RED BLOOD COUNT 4.46 M/UL (4.20-5.40); RED CELL DISTRIBUTION WIDTH 10.3 % (11.6-14.8); WHITE BLOOD COUNT 10.2 K/UL (4.8-10.8)
[2018-04-28 08:00] VITALS: BP 115/68
[2018-04-28 08:05] LABS: ANION GAP 10 mmol/L (5-15); BLOOD UREA NITROGEN 4 mg/dL (7-18); CALCIUM 9.1 MG/DL (8.5-10.1); CARBON DIOXIDE 24 MMOL/L (21-32); CHLORIDE 104 MMOL/L (98-107); CREATININE 0.8 MG/DL (0.55-1.30); POTASSIUM 3.8 MMOL/L (3.5-5.1); SODIUM 138 MMOL/L (136-145)
[2018-04-28] MEDS: Docusate 100mg cap ORAL SCH ×2 (08:36→17:26)
[2018-04-28] MEDS: Heparin 5000 units/ml inj SUBQ SCH ×2 (08:40→21:00)
[2018-04-28 12:00] VITALS: BP_SYST 130
--- NOTE | 2018-04-28 13:18 | General Progress Note ---
Assessment/Plan Assessment/Plan 22 year old woman with history of hidradenitis suppurativa, obesity, diet controlled diabetes, fibromyalgia who presented with worsening multiple bilateral axillary and breast draining abscesses associated with redness, pain and subjective fever. Multiple bilateral axillary and breast abscesses in the setting of hidradenitis , continue IV vancomycin and ceftriaxone as per ID recs. Plan for surgery tomorrow morning, NPO after midnight. Labs and CXR reviewed, she is considered medically optimized for surgery. Continue with anti-emetics, pain medications, bowel regimen, incentive spirometry and VTE prophylaxis post-operatively. Recommend reduction in Dilaudid DISPLAY ARTIST use given her nausea and general weakness with large doses. history of obesity and diet controlled DM, continue lispro coverage. history of fibromyalgia, controlled. VTE PPx continue heparin subcutaneous Subjective Date patient seen: Apr 28, 2018 Time patient seen: 13:00 ROS Limited/Unobtainable: No Constitutional: Denies: chills, diaphoresis, fever Cardiovascular: Denies: chest pain, edema, palpitations Respiratory: Denies: cough, shortness of breath, SOB with excertion Gastrointestinal/Abdominal: Denies: abdominal pain Genitourinary: Denies: burning, frequency Neurologic/Psychiatric: Denies: anxiety, depressed Hematologic/Lymphatic: Denies: easy bleeding Allergies: Coded Allergies: MORPHINE (Verified Allergy, Unknown, 04/23/18) Subjective Medicine followup for bilateral axillary and breast abscesses in the setting of hidradenitis suppurativa, underwent debridement of bilateral breast abscesses and axillary abscesses. She feels much better today after decrease in Dilaudid utilization. Nausea much improved, not as weak. Eating well, ambulating without difficulty and no change problems with urination or bowel movements. Mother at bedside feels she is doing well. Objective Last 24 Hour Vital Signs Date Time Temp Pulse Resp B/P (MAP) Pulse Ox O2 Delivery O2 Flow Rate FiO2 04/28/18 12:00 98.2 85 18 130/ 81 98.2 04/28/18 12:00 20 04/28/18 08:21 Room Air 04/28/18 08:00 98.1 87 18 115/68 (84) 100 98.1 18 04/28/18 08:00 18 04/28/18 04:00 97.6 81 18 101/67 (78) 99 97.6 10/7/18 04:00 18 04/28/18 00:00 18 04/28/18 00:00 98.3 82 18 98/56 (70) 100 98.3 04/27/18 21:00 Room Air 04/27/18 20:00 98.4 74 18 148/90 (109) 100 98.4 04/27/18 20:00 18 04/27/18 16:00 18 04/27/18 16:00 99.3 78 18 156/87 (110) 100 99.3 Intake and Output 04/27/18 04/28/18 19:00 07:00 Intake Total 1280 ml 980 ml Output Total 104 ml 2 ml Balance 1176 ml 978 ml Intake Oral 800 ml 480 ml IV Total 480 ml 500 ml Output Emesis 100 ml Drainage Total 4 ml 2 ml # Voids 2 3 Laboratory Tests 04/28/18 05:25: White Blood Count 10.2, Red Blood Count 4.46, Hemoglobin 13.2, Hematocrit 36.8L , Mean Corpuscular Volume 82, Mean Corpuscular Hemoglobin 29.6, Mean Corpuscular Hemoglobin Concent 35.9, Red Cell Distribution Width 10.3L, Platelet Count 255, Mean Platelet Volume 6.9, Neutrophils (%) (Auto) 56.5, Lymphocytes (%) (Auto) 25.5, Monocytes (%) (Auto) 6.8, Eosinophils (%) (Auto) 10.5H, Basophils (%) (Auto) 0.7, Sodium Level 138, Potassium Level 3.8, Chloride Level 104, Carbon Dioxide Level 24, Anion Gap 10, Blood Urea Nitrogen 4L, Creatinine 0.8, Estimat Glomerular Filtration Rate > 60, Glucose Level 98, Calcium Level 9.1, Magnesium Level 1.8 Height (Feet): 5 Height (Inches): 5.00 Weight (Pounds): 243 General Appearance: no apparent distress, alert Neck: supple, normal inspection Cardiovascular: normal peripheral pulses, normal rate, regular rhythm Respiratory/Chest: chest wall non-tender, lungs clear Abdomen: normal bowel sounds, non tender, soft Neurologic: toilet attendant II-XII grossly normal, no motor/sensory deficits, alert, oriented x 3 Skin: other - Surgical dressings in place, clean and dry appearing. Ayo Rodriguez MD Apr 28, 2018 13:18
[2018-04-28 16:00] VITALS: BP 145/97
[2018-04-28] MEDS: cefTRIAXone 1 GM in D5W 55 ML IVPB SCH (17:15)
[2018-04-28] MEDS: Miralax 17gm pkt ORAL PRN (17:26)
[2018-04-28] MEDS: ALPRAZolam 0.5mg tab ORAL PRN (18:18)
[2018-04-28 20:00] VITALS: BP 126/77
[2018-04-28] MEDS: Dyna-Hex 2% Top Sol 2oz TOPIC SCH (20:09)
[2018-04-28] MEDS ORDERED: PCA HYDROmorphone 1mg/ml 30 ML IV PRN (23:30)
[2018-04-28] MEDS ORDERED: Naloxone 0.4mg/ml Inj IVP PRN (23:30)
[2018-04-28] MEDS ORDERED: Rate Change PCA 1 Each MISC PRN (23:30)
[2018-04-28] MEDS ORDERED: PCA Education Pamphlet MISC ONE (23:30)
[2018-04-29] VITALS (16 sets, daily range): BP systolic 106–135; BP diastolic 56–83
[2018-04-29] MEDS: Vancomycin 1250mg/D5W 250ml 250 ML IVPB SCH ×2 (06:12→18:00)
[2018-04-29] MEDS: NovoLOG Insulin Flexpen SUBQ SCH ×4 (06:30→21:00)
[2018-04-29] MEDS ORDERED: PCA shift volume MISC SCH (07:00)
[2018-04-29] MEDS ORDERED: Lidocaine 1% 10mg/ml/Epi 0.005mg/ml 30ml vial INJ ONE (07:09)
[2018-04-29] MEDS ORDERED: Bacitracin 50000 Units Vial ONE ×2 (07:09→09:00)
[2018-04-29] MEDS ORDERED: NeoSporin Gu Irrig 1ml Amp IRRIG ONE ×2 (07:09→09:00)
[2018-04-29] MEDS ORDERED: EPINEPHrine 1mg/1ml Amp ONE (07:09)
[2018-04-29] MEDS: Docusate 100mg cap ORAL SCH ×2 (09:00→18:00)
[2018-04-29] MEDS: Heparin 5000 units/ml inj SUBQ SCH ×2 (09:00→21:00)
[2018-04-29] MEDS ORDERED: Zemuron 50mg/5ml Inj IV ONE (09:23)
[2018-04-29] MEDS ORDERED: Midazolam 2mg/2ml Inj ONE (09:25)
[2018-04-29] MEDS ORDERED: fentaNYL 100 mcg/2 mL IV ONE (09:25)
[2018-04-29] MEDS ORDERED: Lidocaine 1% MPF 10mg/ml 5ml ONE (09:25)
[2018-04-29] MEDS ORDERED: Propofol 200mg/20ml IV ONE (09:25)
[2018-04-29] MEDS ORDERED: Ketorolac 30mg Inj ONE ×2 (09:25→09:30)
--- NOTE | 2018-04-29 09:38 | Pre-Procedure Note/Attestation ---
Pre-Procedure Note/Attestation Complete Prior to Procedure Planned Procedure: bilateral Procedure Narrative: Flap closure of bilateral axillary and chest wall wounds Attestation I attest that I discussed the nature of the procedure; its benefits; risks and complications; and alternatives (and the risks and benefits of such alternatives ), prior to the procedure, with the patient (or the patient's legal arborist representative). I attest that, if there was a reasonable possibility of needing a blood transfusion, the patient (or the patient's legal arborist representative) was given the [facility] standardized written summary, pursuant to the [place] Blood Safety Act ([place] Health and Safety Code # 1645, as amended). I attest that I re-evaluated the patient just prior to the surgery and that there has been no change in the patient's H&P, except as documented below: ANNITA PENA Apr 29, 2018 09:38
[2018-04-29] MEDS ORDERED: PCA Education Pamphlet MISC ONE (09:45)
[2018-04-29] MEDS ORDERED: Zolpidem 5mg tab ORAL PRN (09:45)
[2018-04-29] MEDS ORDERED: PCA HYDROmorphone 1mg/ml 30 ML IV PRN (09:45)
[2018-04-29] MEDS ORDERED: Rate Change PCA 1 Each MISC PRN (09:45)
[2018-04-29] MEDS ORDERED: LR 1000ml ONE (10:00)
[2018-04-29] MEDS ORDERED: Succinylcholine 20mg/ml 10ml vial ONE (10:00)
[2018-04-29] MEDS ORDERED: Sterile Water Irrig 1000ml IRRIG ONE (10:00)
[2018-04-29] MEDS ORDERED: Neostigmine 1mg/ml 10ml Inj ONE (10:00)
[2018-04-29] MEDS ORDERED: NS Irrig 1000ml ONE ×2 (10:00→10:53)
[2018-04-29] MEDS ORDERED: Surgicel 4in x 8in TOPIC ONE (10:25)
[2018-04-29] MEDS ORDERED: Morphine Sulfate 10mg/ml Inj ONE (10:31)
[2018-04-29] MEDS ORDERED: Glycopyrrolate 0.2mg/ml 1ml Vial ONE (10:31)
[2018-04-29] MEDS ORDERED: Sodium Chloride 10ml vial INJ ONE (10:31)
[2018-04-29] MEDS ORDERED: 1/2 NS 1000ml IV ONE (10:53)
--- NOTE | 2018-04-29 10:53 | Anethesia Preoperative Eval ---
Anesthesia Pre-op PMH/ROS General Date of Evaluation: Apr 29, 2018 Time of Evaluation: 09:20 Anesthesiologist: Sandy ASA Score: ASA 3 Mallampati Score Class I : Soft palate, uvula, fauces, pillars visible Class II: Soft palate, uvula, fauces visible Class III: Soft palate, base of uvula visible Class IV: Only hard plate visible Mallampati Classification: Class III Surgeon: Apolinar Diagnosis: Recurrent HS Surgical Procedure: Axillary wounds closure Anesthesia History: none Family History: no anesthesia problems Allergies: Coded Allergies: MORPHINE (Verified Allergy, Unknown, 04/23/18) Patient NPO?: Yes Past Medical History Cardiovascular: Denies: HTN, CAD, OR, valve dz, arrhythmia, other Pulmonary: Denies: asthma, COPD, MARA, other Gastrointestinal/Genitourinary: Reports: GERD; Denies: CRI, ESRD, other Neurologic/Psychiatric: Reports: depression/anxiety; Denies: dementia, CVA, TIA, other Endocrine: Reports: DM - borderline; Denies: hypothyroidism, steroids, other HEENT: Denies: cataract (L), cataract (R), glaucoma, SAXMAN (L), SAXMAN (R), other Hematology/Immune: Reports: anemia - mild; Denies: DVT, bleeding disorder, other Musculoskeletal/Integumentary: Reports: other - recurrent HS; Denies: OA, RA, DJD, DDD, edema Other: obesity PMH Narrative: as above PSxH Narrative: Surgical treatment of HS Cholecystectomy Anesthesia Pre-op Phys. Exam Physician Exam Last Vital Signs Date Time Temp Pulse Resp B/P (MAP) Pulse Ox O2 Delivery O2 Flow Rate FiO2 04/29/18 09:00 Room Air 04/29/18 08:00 20 04/29/18 08:00 97.7 75 116/71 (86) 99 97.7 04/26/18 13:59 3 Constitutional: NAD Neurologic: CN 2-12 intact Cardiovascular: RRR, no M/R/G Respiratory: CTA Gastrointestinal: other - obesity Airway Exam Mallampati Score: Class III MO: full Neck: Short ROM: full Teeth: intact Dentures: no upper, no lower Anesthesia Pre-op A/P Labs see chart Risk Assessment & Plan Assessment: ASA 3 Plan: GA with ETT Status Change Before Surgery: No Pre-Antibiotics Drug: Ancef 2gr. Given Within 1 Hr of Incision: Yes Time Given: 10:12 Ismael Delgado MD Apr 29, 2018 10:53
[2018-04-29] MEDS ORDERED: LR 1000ml 1,000 ML IVLG SCH (10:54)
[2018-04-29] MEDS ORDERED: DiphenhydrAMINE 50mg/ml Inj IVP PRN (11:00)
[2018-04-29] MEDS ORDERED: Ketorolac 30mg Inj IV PRN (11:00)
[2018-04-29] MEDS ORDERED: Metoclopramide 10mg/2ml Inj IVP PRN (11:00)
[2018-04-29] MEDS ORDERED: Midazolam 2mg/2ml Inj IVP PRN (11:00)
[2018-04-29] MEDS ORDERED: Meperidine 50mg/ml Inj(FOR RIGORS ONLY) IV PRN (11:00)
[2018-04-29] MEDS ORDERED: fentaNYL 100 mcg/2 mL IV PRN (11:00)
--- NOTE | 2018-04-29 11:11 | General Progress Note ---
Assessment/Plan Assessment/Plan 22 year old woman with history of hidradenitis suppurativa, obesity, diet controlled diabetes, fibromyalgia who presented with worsening multiple bilateral axillary and breast draining abscesses associated with redness, pain and subjective fever. Multiple bilateral axillary and breast abscesses in the setting of hidradenitis , continue IV vancomycin and ceftriaxone as per ID recs. Doing well today, no new complaints. Pain and nausea controlled. Plan for surgery today. Continue supportive measures and routine post-operative care including VTE prophylaxis, incentive spirometry and bowel regimen. history of obesity and diet controlled DM, continue lispro coverage. history of fibromyalgia, controlled. VTE PPx continue heparin subcutaneous Subjective Date patient seen: Apr 29, 2018 Time patient seen: 08:30 ROS Limited/Unobtainable: No Constitutional: Denies: chills, fever Cardiovascular: Denies: chest pain Respiratory: Denies: cough, shortness of breath Gastrointestinal/Abdominal: Denies: abdomen distended, abdominal pain Neurologic/Psychiatric: Denies: anxiety, depressed Hematologic/Lymphatic: Denies: easy bleeding Allergies: Coded Allergies: MORPHINE (Verified Allergy, Unknown, 04/23/18) Subjective Medicine followup for bilateral axillary and breast abscesses in the setting of hidradenitis suppurativa, underwent debridement of bilateral breast abscesses and axillary abscesses. No new complaints, pain and nausea adequately controlled. No problems urinating or having bowel movements. Objective Last 24 Hour Vital Signs Date Time Temp Pulse Resp B/P (MAP) Pulse Ox O2 Delivery O2 Flow Rate FiO2 04/29/18 09:00 Room Air 04/29/18 08:00 20 04/29/18 08:00 97.7 75 20 116/71 (86) 99 97.7 04/29/18 04:00 18 04/29/18 04:00 98.1 81 127/83 (98) 98.1 04/29/18 00:00 98.2 82 122/81 (95) 98.2 04/29/18 00:00 18 04/28/18 21:00 Room Air 04/28/18 20:00 98.6 87 126/77 (93) 98.6 04/28/18 20:00 18 04/28/18 16:00 98.1 97 20 145/97 (113) 100 98.1 04/28/18 16:00 20 04/28/18 12:00 98.2 85 18 130/ 81 98.2 04/28/18 12:00 20 Intake and Output 04/28/18 04/29/18 19:00 07:00 Intake Total 1200 ml 50 ml Output Total 5 ml 4 ml Balance 1195 ml 46 ml Intake Oral 750 ml IV Total 450 ml 50 ml Drainage Total 5 ml 4 ml # Voids 2 2 Height (Feet): 5 Height (Inches): 5.00 Weight (Pounds): 243 Neck: supple Cardiovascular: normal rate, regular rhythm Respiratory/Chest: lungs clear, normal breath sounds, no respiratory distress Abdomen: non tender, soft Neurologic: alert, oriented x 3 Ayo Rodriguez MD Apr 29, 2018 11:11
--- NOTE | 2018-04-29 12:00 | Operative Note - PDOC ---
Operative Note Operative Note Procedure: Closure of axillary wound and lateral chest wall Post-op Diagnosis: same as pre-op Surgeon: Apolinar Geriatric Nurse Practitioner: Cande Anesthesia: general Specimen: yes Complications: none Condition: stable Estimated Blood Loss: minimal Drains: AMRIT Implant(s) used?: No ANNITA PENA Apr 29, 2018 12:00
--- NOTE | 2018-04-29 12:16 | Immediate Post-Op Evaluation ---
Immediate Post-Op Evalulation Immediate Post-Op Evalulation Procedure: Revision and closure of bilateral axillary wounds Date of Evaluation: Apr 29, 2018 Time of Evaluation: 12:15 IV Fluids: 700 Blood Products: none Estimated Blood Loss: <50 Urinary Output: none Blood Pressure Systolic: 116 Blood Pressure Diastolic: 58 Pulse Rate: 92 Respiratory Rate: 20 O2 Sat by Pulse Oximetry: 99 Temperature (Fahrenheit): 98.4 Pain Score (1-10): 1 Nausea: No Vomiting: No Complications none Patient Status: reacts, patent, extubated, none Hydration Status: adequate Ismael Delgado MD Apr 29, 2018 12:16
[2018-04-29] MEDS: cefTRIAXone 1 GM in D5W 55 ML IVPB SCH (17:25)
[2018-04-29] MEDS: Metoclopramide 10mg/2ml Inj IVP PRN (18:07)
--- NOTE | 2018-04-29 18:15 | Infectious Diseases Prog Note ---
Assessment/Plan Assessment/Plan ASSESSMENT AND PLAN: 1. bilateral axilla and breast hidradenitis suppurativa with abscesses/ cellulitis/wound infection/drainage - s/p debridement and wound closure - continue vancomycin and ceftriaxone - monitor labs periodically 2. Obesity. 3. Prediabetes or type 2 diabetes mellitus. 4. History of hidradenitis suppurativa x10 years. 5. History of antibiotic use. 6. She has history of inguinal surgery in the past. 7. Allergic to morphine. 8. Social history is negative. 9. Family history positive for fibromyalgia and diabetes. 10. Case was discussed with RN. 11. MAR was noted. 12. Continue treatment per primary consultants. Subjective Constitutional: Denies: fever HEENT: Denies: congestion Respiratory: Denies: shortness of breath Cardiovascular: Denies: chest pain Gastrointestinal/Abdominal: Denies: nausea, vomiting, diarrhea Genitourinary: Denies: dysuria, hematuria, frequency Neurologic: Denies: headache Psychiatric: Denies: depression Skin: Denies: rash Hematologic: Denies: bleeding Musculoskeletal: Reports: pain - controlled Allergies: Coded Allergies: MORPHINE (Verified Allergy, Unknown, 04/23/18) Objective Vital Signs Last 24 Hour Vital Signs Date Time Temp Pulse Resp B/P (MAP) Pulse Ox O2 Delivery O2 Flow Rate FiO2 04/29/18 16:00 98.1 78 20 117/67 (84) 99 98.1 04/29/18 16:00 19 04/29/18 13:45 20 04/29/18 13:30 98.1 74 20 133/74 (93) 98 98.1 04/29/18 13:25 98.0 78 23 129/62 100 Nasal Cannula 3 98.0 04/29/18 13:10 86 15 135/75 100 Nasal Cannula 3 04/29/18 13:10 14 04/29/18 13:10 98.4 04/29/18 13:05 97.8 78 14 128/63 100 Nasal Cannula 3 97.8 04/29/18 13:05 98.4 04/29/18 12:55 82 19 123/59 100 Simple Mask 6 04/29/18 12:53 18 04/29/18 12:40 86 18 119/60 100 Simple Mask 4 04/29/18 12:30 88 18 118/60 100 Simple Mask 6 04/29/18 12:25 89 20 112/57 99 Simple Mask 6 04/29/18 12:20 99 20 112/57 99 Simple Mask 6 04/29/18 12:16 209.1 92 20 99 04/29/18 12:15 94 20 111/56 99 Simple Mask 6 04/29/18 12:10 98.4 96 20 117/61 99 Simple Mask 6 98.4 04/29/18 09:00 Room Air 04/29/18 08:00 20 04/29/18 08:00 97.7 75 20 116/71 (86) 99 97.7 04/29/18 04:00 18 04/29/18 04:00 98.1 81 127/83 (98) 98.1 04/29/18 00:00 98.2 82 122/81 (95) 98.2 04/29/18 00:00 18 04/28/18 21:00 Room Air 04/28/18 20:00 98.6 87 126/77 (93) 98.6 04/28/18 20:00 18 Height (Feet): 5 Height (Inches): 5.00 Weight (Pounds): 243 General Appearance: no acute distress HEENT: normocephalic, atraumatic, anicteric, mucous membranes moist Respiratory/Chest: lungs clear, normal breath sounds, no respiratory distress, no accessory muscle use Cardiovascular: normal rate, regular rhythm, no gallop/murmur, no JVD Abdomen: normal bowel sounds, soft, non tender, no organomegaly, non distended Genitourinary: other - no smith Extremities: no cyanosis Skin: no rash Neurologic/Psychiatric: kiln pusher II-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 grossly normal, alert, responsive Lymphatic: no neck adenopathy Musculoskeletal: no effusion Objective none none Labs Test 04/28/18 05:25 White Blood Count 10.2 K/UL (4.8-10.8) Red Blood Count 4.46 M/UL (4.20-5.40) Hemoglobin 13.2 G/DL (12.0-16.0) Hematocrit 36.8 % (37.0-47.0) Mean Corpuscular Volume 82 FL (80-99) Mean Corpuscular Hemoglobin 29.6 PG (27.0-31.0) Mean Corpuscular Hemoglobin Concent 35.9 G/DL (32.0-36.0) Red Cell Distribution Width 10.3 % (11.6-14.8) Platelet Count 255 K/UL (150-450) Mean Platelet Volume 6.9 FL (6.5-10.1) Neutrophils (%) (Auto) 56.5 % (45.0-75.0) Lymphocytes (%) (Auto) 25.5 % (20.0-45.0) Monocytes (%) (Auto) 6.8 % (1.0-10.0) Eosinophils (%) (Auto) 10.5 % (0.0-3.0) Basophils (%) (Auto) 0.7 % (0.0-2.0) Sodium Level 138 MMOL/L (136-145) Potassium Level 3.8 MMOL/L (3.5-5.1) Chloride Level 104 MMOL/L (98-107) Carbon Dioxide Level 24 MMOL/L (21-32) Anion Gap 10 mmol/L (5-15) Blood Urea Nitrogen 4 mg/dL (7-18) Creatinine 0.8 MG/DL (0.55-1.30) Estimat Glomerular Filtration Rate > 60 mL/min (>60) Glucose Level 98 MG/DL (74-106) Calcium Level 9.1 MG/DL (8.5-10.1) Magnesium Level 1.8 MG/DL (1.8-2.4) Current Medications Medications (Trade) Dose Ordered Sig/Eloisa Route PRN Reason Start Time Stop Time Status Last Admin Dose Admin Acetaminophen (Tylenol) 650 mg Q4H PRN ORAL FEVER 04/29/18 09:45 05/29/18 09:44 Al Hydroxide/Mg Hydroxide (Mylanta II) 30 ml Q6H PRN ORAL dyspepsia 04/23/18 14:30 05/23/18 14:29 Alprazolam (Xanax) 0.5 mg TIDPRN PRN ORAL For Anxiety 04/23/18 19:30 04/30/18 19:29 04/28/18 18:18 Calcium Carbonate (Tums) 500 mg Q4HR PRN ORAL HEARBURN 04/27/18 10:00 05/27/18 09:59 04/27/18 10:40 Ceftriaxone Sodium 1 gm/ Dextrose 55 ml @ 110 mls/hr Q24H IVPB 04/23/18 17:00 04/30/18 16:59 04/29/18 17:25 Chlorhexidine Gluconate (Rose-Hex 2%) 1 applic DAILY@2000 TOPIC 04/25/18 20:00 05/25/18 19:59 04/28/18 20:09 Dextrose (Dextrose 50%) 25 ml Q30M PRN IV Hypoglycemia 04/25/18 16:15 05/25/18 16:14 Dextrose (Dextrose 50%) 50 ml Q30M PRN IV Hypoglycemia 04/25/18 16:15 05/25/18 16:14 Diphenhydramine HCl (Benadryl) 12.5 mg Q6H PRN IVP Itching/Pruritis 04/24/18 09:30 05/24/18 09:29 04/25/18 11:00 Docusate Sodium (Colace) 100 mg TWICE A DAY ORAL 04/29/18 09:00 05/29/18 08:59 04/29/18 18:00 Heparin Sodium (Porcine) (Heparin 5000 units/ml) 5,000 units EVERY 12 HOURS SUBQ 04/29/18 09:00 05/29/18 08:59 Hydromorphone HCl 30 ml @ 0 mls/hr Q24H PRN IV For Pain 04/29/18 09:45 05/01/18 09:44 04/29/18 12:53 Hydromorphone HCl (Dilaudid) 2 mg Q3H PRN SUBQ Severe Breakthru Pain (>7) 04/26/18 17:15 05/03/18 17:14 04/27/18 00:27 Hydromorphone HCl (Dilaudid) 2 mg Q4H PRN IVP Moderate Breakthru Pain (5-7) 04/26/18 17:15 05/03/18 17:14 Insulin Aspart (NovoLOG) BEFORE MEALS AND HS SUBQ 04/25/18 16:30 05/25/18 16:29 04/28/18 12:03 Ketorolac Tromethamine (Toradol 30mg) 30 mg EVERY 12 HOURS PRN IV Breakthrough Pain 04/27/18 08:30 05/01/18 23:59 04/28/18 23:24 Metoclopramide HCl (Reglan) 10 mg Q8H PRN IVP Nausea & Vomiting 04/27/18 13:45 05/27/18 13:44 04/29/18 18:07 Miscellaneous Medication (DIRECTOR MORTGAGE Rate Change) 1 ea DAILY PRN MISC rate change 04/29/18 09:45 05/01/18 09:44 Miscellaneous Medication (DIRECTOR MORTGAGE shift volume) 1 ea Q12HR@0700,1900 MISC 04/29/18 19:00 05/01/18 18:59 Naloxone HCl (Narcan) 0.1 mg Q1M PRN IVP RR<10/min OR SBP<90 mmHg 04/28/18 23:30 04/30/18 23:29 Ondansetron HCl (Zofran) 4 mg Q6H PRN IVP Nausea & Vomiting 04/29/18 09:45 05/29/18 09:44 Phenol/Menthol (Chloraseptic) 1 spray Q3H PRN ORAL For Pain(Throat) 04/25/18 08:58 05/25/18 08:57 Polyethylene Glycol (Miralax) 17 gm HSPRN PRN ORAL Constipation 04/23/18 14:30 05/23/18 14:29 04/28/18 17:26 Sodium Chloride 1,000 ml @ 50 mls/hr Q20H IV 04/23/18 15:04 05/23/18 15:03 04/29/18 06:12 Temazepam (Restoril) 7.5 mg DAILYPRN PRN ORAL Insomnia 04/24/18 09:30 05/01/18 09:29 04/25/18 22:24 Vancomycin HCl (Vanco rx to dose) 1 ea DAILY PRN MISC VANCO PER PHARMACY 04/23/18 16:00 05/23/18 15:59 Vancomycin HCl/ Dextrose 250 ml @ 166.667 mls/hr Q12H IVPB 04/27/18 18:00 05/02/18 17:59 04/29/18 18:00 Zolpidem Tartrate (Ambien) 5 mg DAILYPRN PRN ORAL Insomnia 04/29/18 09:45 05/06/18 09:44 Brandt Mcrae MD Apr 29, 2018 18:15
[2018-04-29] MEDS: PCA shift volume MISC SCH (19:11)
[2018-04-29] MEDS: Dyna-Hex 2% Top Sol 2oz TOPIC SCH (21:01)
[2018-04-29] MEDS: Lactobacillus-GG tablet ORAL SCH (21:02)
[2018-04-29] MEDS: Ketorolac 30mg Inj IV PRN (23:33)
[2018-04-30] VITALS: BP 120/66
--- NOTE | 2018-04-30 | Operative Note - Dictated ---
DATE OF OPERATION: 04/29/2018 PREOPERATIVE DIAGNOSIS: Bilateral open axillary/lateral chest wall wounds. POSTOPERATIVE DIAGNOSIS: Bilateral open axillary/lateral chest wall wounds. PROCEDURE: 1. Adjacent tissue transfer closure of left lateral chest wall wound measuring 90 squared cm. 2. Adjacent tissue transfer closure of right lateral chest wall wound measuring 80 squared cm. SURGEON: Edilma Jiang M.D. TECHNICAL CABLE JOINTER: Camille Castellon. ANESTHESIA: General. COMPLICATIONS: None. DRAINS: Include bilateral AMRIT drains size 15. DISPOSITION: Stable to recovery room. INDICATIONS FOR SURGERY: This is a 22-year-old female, who is now 72 hours status post radical excision of axillary infected tissue, who has undergone local wound care and is now ready for definitive flap inset and closure of her wounds. At the first operation, to remove the disease these flaps were elevated to allow for eventual closure of the wound. She understands the risks and benefits of surgery and agreed to proceed. DETAILS OF THE OPERATION: The patient was brought to the operating room and laid in the supine position on the operating table. Her chest and lateral chest addison were prepped and draped in sterile and usual fashion. We first began on the left side by debriding some of the nonviable tissue in the wound bed and then proceeded to re-raise the anterior chest wall flap that had been previously elevated based off of perforators of the thoracoacromial artery. We also raised the posterior chest wall skin to allow for adjacent tissue transfer closure of these wounds. We also had to make a backcut on the upper part of the posterior flap to allow for definitive flap inset. Once all the appropriate incisions were made and the flaps were elevated, the wound was copiously irrigated with pulse lavage. The flap edges were brought together using #0 and 2-0 Vicryl sutures and warren were used to close the skin. This was done on the left side which again measured 90 squared cm. We then turned our attention to the right side which measured 80 squared cm. In a similar fashion, the wound was debrided of nonviable tissue. Using electrocautery, the anterior chest wall flap that was previously elevated based off the thoracoacromial artery was further released by performing some relaxing incisions deep to the skin and a posterior chest wall flap also had to be elevated for definitive adjacent tissue transfer closure of the wounds. Once both flaps were fully elevated, the wound was copiously irrigated with pulse lavage and the two flap edges were brought together using #0 and 2-0 Vicryl sutures and warren were used to close the skin. AMRIT drain size 15 was then placed in both wound beds. The patient tolerated the procedure well. There were no complications. All needle and sponge counts were correct at the end of the case. Edilma Jiang M.D. DR: Apryl JOB#: [id number] CC: HARPER
[2018-04-30 04:00] VITALS: BP 119/74
[2018-04-30] MEDS: NovoLOG Insulin Flexpen SUBQ SCH ×4 (06:13→20:59)
[2018-04-30 06:25] LABS: ANION GAP 10 mmol/L (5-15); BLOOD UREA NITROGEN 4 mg/dL (7-18); CARBON DIOXIDE 25 MMOL/L (21-32); CHLORIDE 104 MMOL/L (98-107); CREATININE 0.8 MG/DL (0.55-1.30); POTASSIUM 3.6 MMOL/L (3.5-5.1); SODIUM 139 MMOL/L (136-145)
[2018-04-30] MEDS: Vancomycin 1250mg/D5W 250ml 250 ML IVPB SCH ×2 (06:55→18:20)
[2018-04-30] MEDS: PCA shift volume MISC SCH ×2 (07:12→19:20)
[2018-04-30] MEDS: Metoclopramide 10mg/2ml Inj IVP PRN (07:28)
[2018-04-30 08:00] VITALS: BP 129/74
[2018-04-30] MEDS: Docusate 100mg cap ORAL SCH ×2 (08:30→17:33)
[2018-04-30] MEDS: Lactobacillus-GG tablet ORAL SCH ×2 (08:30→17:33)
[2018-04-30] MEDS: Heparin 5000 units/ml inj SUBQ SCH ×2 (08:35→20:38)
--- NOTE | 2018-04-30 09:17 | 48 Hour Post Anesthesia Eval ---
Post Anesthesia Evaluation Procedure: Revision and closure of bilateral axillary wounds Date of Evaluation: Apr 30, 2018 Time of Evaluation: 09:50 Blood Pressure Systolic: 129 0: 74 Pulse Rate: 81 Respiratory Rate: 20 Temperature (Fahrenheit): 97.8 O2 Sat by Pulse Oximetry: 99 Airway: patent Nausea: No Vomiting: No Pain Intensity: 1 Hydration Status: adequate Cardiopulmonary Status: Stable Mental Status/LOC: patient returned to baseline Follow-up Care/Observations: As per surgery Post-Anesthesia Complications: No anesthetic complication Follow-up care needed: N/A Krishna Brandon MD Apr 30, 2018 09:17
--- NOTE | 2018-04-30 10:56 | General Progress Note ---
Assessment/Plan Problem List: (1) Breast abscess ICD Codes: N61.1 - Abscess of the breast and nipple SNOMED: 58945889 (2) Hidradenitis suppurativa ICD Codes: L73.2 - Hidradenitis suppurativa SNOMED: 86677616 (3) Fibromyalgia ICD Codes: M79.7 - Fibromyalgia SNOMED: 887965920 Status: doing well Status Narrative B/L hidradenitis suppurativa with abscesses s/p b/l masectomy (04/26) with flap and transfer closure (04/29) with no complications - continue IV abx per ID with Vanco and Rocephin - pain is controlled - bowel regimen - encourage ambulation and PT/OT Fibromyalgia - controlled on pain meds Obesity - encourage weight loss and diet modification Subjective Date patient seen: Apr 30, 2018 Time patient seen: 10:00 ROS Limited/Unobtainable: No Allergies: Coded Allergies: MORPHINE (Verified Allergy, Unknown, 04/23/18) All Systems: reviewed and negative except above Subjective Patient states she is doing "ok" and her pain is controlled. Objective Last 24 Hour Vital Signs Date Time Temp Pulse Resp B/P (MAP) Pulse Ox O2 Delivery O2 Flow Rate FiO2 04/30/18 09:17 208.0 81 20 99 04/30/18 08:14 Room Air 04/30/18 08:00 20 04/30/18 08:00 97.8 81 20 129/74 (92) 99 97.8 04/30/18 04:00 98.5 72 20 119/74 (89) 98 98.5 04/30/18 04:00 19 04/30/18 00:00 98.4 78 20 120/66 (84) 98 98.4 20 04/30/18 00:00 19 04/29/18 21:00 Room Air 04/29/18 20:00 98.8 84 20 106/63 (77) 99 98.8 04/29/18 20:00 19 04/29/18 16:00 98.1 78 20 117/67 (84) 99 98.1 04/29/18 16:00 19 04/29/18 13:45 20 04/29/18 13:30 98.1 74 20 133/74 (93) 98 98.1 04/29/18 13:25 98.0 78 23 129/62 100 Nasal Cannula 3 98.0 04/29/18 13:10 86 15 135/75 100 Nasal Cannula 3 04/29/18 13:10 14 04/29/18 13:10 98.4 04/29/18 13:05 97.8 78 14 128/63 100 Nasal Cannula 3 97.8 04/29/18 13:05 98.4 04/29/18 12:55 82 19 123/59 100 Simple Mask 6 04/29/18 12:53 18 04/29/18 12:40 86 18 119/60 100 Simple Mask 4 04/29/18 12:30 88 18 118/60 100 Simple Mask 6 04/29/18 12:25 89 20 112/57 99 Simple Mask 6 04/29/18 12:20 99 20 112/57 99 Simple Mask 6 04/29/18 12:16 209.1 92 20 99 04/29/18 12:15 94 20 111/56 99 Simple Mask 6 04/29/18 12:10 98.4 96 20 117/61 99 Simple Mask 6 98.4 Intake and Output 04/29/18 04/30/18 19:00 07:00 Intake Total 2246.667 ml 1516.667 ml Output Total 99 ml 38 ml Balance 2147.667 ml 1478.667 ml Intake Oral 605 ml 800 ml IV Total 1641.667 ml 716.667 ml Drainage Total 54 ml 38 ml Estimated Blood Loss 45 ml # Voids 3 2 Laboratory Tests 04/30/18 05:00: Sodium Level 139, Potassium Level 3.6, Chloride Level 104, Carbon Dioxide Level 25, Anion Gap 10, Blood Urea Nitrogen 4L, Creatinine 0.8, Estimat Glomerular Filtration Rate > 60, Glucose Level 97, Calcium Level 9.0, Vancomycin Level Trough 10.9 Height (Feet): 5 Height (Inches): 5.00 Weight (Pounds): 243 General Appearance: no apparent distress, alert, obese EENT: PERRL/EOMI, normal ENT inspection Neck: non-tender, normal alignment, supple Cardiovascular: normal peripheral pulses, normal rate, regular rhythm, regularly irregular, no gallop/murmur, no JVD Respiratory/Chest: lungs clear, normal breath sounds, no respiratory distress, other - chest and axillary wounds are well dressed C/D/I with minimal tenderness Abdomen: normal bowel sounds, non tender, soft, no organomegaly, no mass Extremities: normal range of motion, non-tender Edema: no edema noted Arm (L), no edema noted Arm (R), no edema noted Leg (L), no edema noted Leg (R), no edema noted Pedal (L), no edema noted Pedal (R), no edema noted 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
[2018-04-30 12:00] VITALS: BP 124/68
--- NOTE | 2018-04-30 12:28 | General Progress Note ---
Progress Note Progress Note Pt seen and examined. POD # 1from closure of bilateral axillary and chest. Doing well and pain is very well controlled. Dressings are clean and dry. Continue pain meds and AMRIT drains for now. Edilma Arellano MD, MD Apr 30, 2018 12:28
[2018-04-30 16:00] VITALS: BP 148/92
[2018-04-30] MEDS: cefTRIAXone 1 GM in D5W 55 ML IVPB SCH (17:07)
[2018-04-30 20:00] VITALS: BP 139/78
[2018-04-30] MEDS: Dyna-Hex 2% Top Sol 2oz TOPIC SCH (20:36)
[2018-04-30] MEDS: Ketorolac 30mg Inj IV PRN (23:09)
[2018-05-01 00:19] VITALS: BP 134/76
[2018-05-01 04:27] VITALS: BP 136/80
[2018-05-01] MEDS: Vancomycin 1250mg/D5W 250ml 250 ML IVPB SCH ×2 (05:44→17:52)
[2018-05-01] MEDS: NovoLOG Insulin Flexpen SUBQ SCH ×4 (05:52→21:08)
[2018-05-01] MEDS: PCA shift volume MISC SCH ×2 (07:01→19:18)
[2018-05-01 08:00] VITALS: BP 135/77
[2018-05-01] MEDS: Lactobacillus-GG tablet ORAL SCH ×2 (08:44→17:41)
[2018-05-01] MEDS: Docusate 100mg cap ORAL SCH ×2 (08:44→17:41)
[2018-05-01] MEDS: Heparin 5000 units/ml inj SUBQ SCH ×2 (08:51→21:09)
[2018-05-01] MEDS ORDERED: Zolpidem 5mg tab ORAL PRN (09:30)
[2018-05-01] MEDS ORDERED: Rate Change PCA 1 Each MISC PRN (09:30)
[2018-05-01] MEDS ORDERED: PCA HYDROmorphone 1mg/ml 30 ML IV PRN (09:45)
[2018-05-01] MEDS ORDERED: DiphenhydrAMINE 50mg/ml Inj IVP PRN (10:00)
--- NOTE | 2018-05-01 10:32 | General Progress Note ---
Assessment/Plan Problem List: (1) Breast abscess ICD Codes: N61.1 - Abscess of the breast and nipple SNOMED: 43097150 (2) Hidradenitis suppurativa ICD Codes: L73.2 - Hidradenitis suppurativa SNOMED: 89163389 (3) Fibromyalgia ICD Codes: M79.7 - Fibromyalgia SNOMED: 654921547 Assessment/Plan B/L hidradenitis suppurativa with abscesses s/p b/l masectomy (04/26) with flap and transfer closure (04/29) with no complications - continue IV abx per ID with Vanco and Rocephin, plan for discharge on sunday , per ID will discharge on Bactrim and Keflex x 5 days - pain is controlled - bowel regimen - encourage ambulation and PT/OT Fibromyalgia - controlled on pain meds Obesity - encourage weight loss and diet modification Subjective Date patient seen: May 01, 2018 Time patient seen: 09:00 Allergies: Coded Allergies: MORPHINE (Verified Allergy, Unknown, 04/23/18) All Systems: reviewed and negative except above - patietns tates she does not have much apetite, pain is controlled Subjective Patient states she is doing "ok" and her pain is controlled. Objective Last 24 Hour Vital Signs Date Time Temp Pulse Resp B/P (MAP) Pulse Ox O2 Delivery O2 Flow Rate FiO2 05/01/18 09:00 Room Air 05/01/18 08:00 17 05/01/18 08:00 97.8 81 18 135/77 (96) 97 97.8 05/01/18 04:27 98.9 81 17 136/80 (98) 97 98.9 05/01/18 04:00 17 05/01/18 00:19 98.8 83 16 134/76 (95) 98 98.8 05/01/18 00:00 18 04/30/18 21:00 Room Air 04/30/18 20:00 17 04/30/18 20:00 99.1 78 17 139/78 (98) 98 99.1 04/30/18 16:00 20 04/30/18 16:00 97.9 90 20 148/92 (110) 100 97.9 04/30/18 12:00 20 04/30/18 12:00 97.9 86 19 124/68 (86) 97.9 Intake and Output 04/30/18 05/01/18 19:00 07:00 Intake Total 1235 ml 860 ml Output Total 12 ml 8 ml Balance 1223 ml 852 ml Intake Oral 780 ml 360 ml IV Total 455 ml 500 ml Drainage Total 12 ml 8 ml # Voids 2 Height (Feet): 5 Height (Inches): 5.00 Weight (Pounds): 266 General Appearance: no apparent distress, alert, obese EENT: PERRL/EOMI, normal ENT inspection, TMs normal Neck: non-tender, normal alignment, supple Cardiovascular: normal peripheral pulses, normal rate, regular rhythm Respiratory/Chest: other - wounds present with ken drains, no fluid, minimal tenderness, surgical site c/d/i/ Abdomen: normal bowel sounds, non tender, soft, no mass Edema: no edema noted Arm (L), no edema noted Arm (R), no edema noted Leg (L), no edema noted Leg (R), no edema noted Pedal (L), no edema noted Pedal (R), no edema noted 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
[2018-05-01 12:00] VITALS: BP 120/72
[2018-05-01 16:00] VITALS: BP 133/84
--- NOTE | 2018-05-01 16:39 | Infectious Diseases Prog Note ---
Assessment/Plan Assessment/Plan ASSESSMENT AND PLAN: 1. bilateral axilla and breast hidradenitis suppurativa with abscesses/ cellulitis/wound infection/drainage - s/p debridement and wound closure - continue vancomycin and ceftriaxone - monitor labs periodically - can discharge on bactrim plus keflex x 5 days upon discharge - d/w Dr. Vega 2. Obesity. 3. Prediabetes or type 2 diabetes mellitus. 4. History of hidradenitis suppurativa x10 years. 5. History of antibiotic use. 6. She has history of inguinal surgery in the past. 7. Allergic to morphine. 8. Social history is negative. 9. Family history positive for fibromyalgia and diabetes. 10. Case was discussed with RN. 11. MAR was noted. 12. Continue treatment per primary consultants. Subjective Constitutional: Denies: fever HEENT: Denies: congestion Respiratory: Denies: shortness of breath Cardiovascular: Denies: chest pain Gastrointestinal/Abdominal: Denies: nausea, vomiting, diarrhea Genitourinary: Reports: other - no smith Neurologic: Denies: headache Psychiatric: Denies: depression Skin: Denies: rash Hematologic: Denies: bleeding Musculoskeletal: Denies: pain Allergies: Coded Allergies: MORPHINE (Verified Allergy, Unknown, 04/23/18) Objective Vital Signs Last 24 Hour Vital Signs Date Time Temp Pulse Resp B/P (MAP) Pulse Ox O2 Delivery O2 Flow Rate FiO2 05/01/18 16:00 18 05/01/18 16:00 98.9 74 20 133/84 (100) 99 98.9 05/01/18 12:00 98.9 79 18 120/72 (88) 100 98.9 05/01/18 12:00 18 05/01/18 09:00 Room Air 05/01/18 08:00 17 05/01/18 08:00 97.8 81 18 135/77 (96) 97 97.8 05/01/18 04:27 98.9 81 17 136/80 (98) 97 98.9 05/01/18 04:00 17 05/01/18 00:19 98.8 83 16 134/76 (95) 98 98.8 05/01/18 00:00 18 04/30/18 21:00 Room Air 04/30/18 20:00 17 04/30/18 20:00 99.1 78 17 139/78 (98) 98 99.1 Height (Feet): 5 Height (Inches): 5.00 Weight (Pounds): 266 General Appearance: no acute distress HEENT: normocephalic, atraumatic, anicteric, mucous membranes moist Respiratory/Chest: lungs clear, normal breath sounds, no respiratory distress, no accessory muscle use Cardiovascular: normal rate, regular rhythm, no gallop/murmur, no JVD Abdomen: normal bowel sounds, soft, non tender, no organomegaly, non distended Genitourinary: other - no smith Extremities: no cyanosis Skin: no rash, other - wounds - covered Neurologic/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 normal, alert, responsive Lymphatic: no neck adenopathy Musculoskeletal: no effusion Objective none none Labs Test 04/30/18 05:00 Sodium Level 139 MMOL/L (136-145) Potassium Level 3.6 MMOL/L (3.5-5.1) Chloride Level 104 MMOL/L (98-107) Carbon Dioxide Level 25 MMOL/L (21-32) Anion Gap 10 mmol/L (5-15) Blood Urea Nitrogen 4 mg/dL (7-18) Creatinine 0.8 MG/DL (0.55-1.30) Estimat Glomerular Filtration Rate > 60 mL/min (>60) Glucose Level 97 MG/DL (74-106) Calcium Level 9.0 MG/DL (8.5-10.1) Vancomycin Level Trough 10.9 ug/mL (5.0-12.0) wbc - 10.2 hgb - 13.2 Current Medications Medications (Trade) Dose Ordered Sig/Eloisa Route PRN Reason Start Time Stop Time Status Last Admin Dose Admin Acetaminophen (Tylenol) 650 mg Q4H PRN ORAL FEVER 04/29/18 09:45 05/29/18 09:44 Al Hydroxide/Mg Hydroxide (Mylanta II) 30 ml Q6H PRN ORAL dyspepsia 04/23/18 14:30 05/23/18 14:29 Calcium Carbonate (Tums) 500 mg Q4HR PRN ORAL HEARBURN 04/27/18 10:00 05/27/18 09:59 04/27/18 10:40 Ceftriaxone Sodium 1 gm/ Dextrose 55 ml @ 110 mls/hr Q24H IVPB 04/30/18 17:00 05/07/18 16:59 04/30/18 17:07 Chlorhexidine Gluconate (Rose-Hex 2%) 1 applic DAILY@2000 TOPIC 04/25/18 20:00 05/25/18 19:59 04/30/18 20:36 Dextrose (Dextrose 50%) 25 ml Q30M PRN IV Hypoglycemia 04/25/18 16:15 05/25/18 16:14 Dextrose (Dextrose 50%) 50 ml Q30M PRN IV Hypoglycemia 04/25/18 16:15 05/25/18 16:14 Diphenhydramine HCl (Benadryl) 12.5 mg Q6H PRN IVP Itching/Pruritis 05/01/18 10:00 05/31/18 09:59 Docusate Sodium (Colace) 100 mg TWICE A DAY ORAL 04/29/18 09:00 05/29/18 08:59 05/01/18 08:44 Heparin Sodium (Porcine) (Heparin 5000 units/ml) 5,000 units EVERY 12 HOURS SUBQ 04/29/18 09:00 05/29/18 08:59 05/01/18 08:51 Hydromorphone HCl 30 ml @ 0 mls/hr Q24H PRN IV For Pain 05/01/18 09:45 05/03/18 09:44 Hydromorphone HCl (Dilaudid) 2 mg Q3H PRN SUBQ Severe Breakthru Pain (>7) 05/01/18 10:00 05/08/18 09:59 Hydromorphone HCl (Dilaudid) 2 mg Q4H PRN IVP Moderate Breakthru Pain (5-7) 05/01/18 10:00 05/08/18 09:59 Insulin Aspart (NovoLOG) BEFORE MEALS AND HS SUBQ 04/25/18 16:30 05/25/18 16:29 05/01/18 12:04 Ketorolac Tromethamine (Toradol 30mg) 30 mg EVERY 12 HOURS PRN IV Breakthrough Pain 04/27/18 08:30 05/01/18 23:59 04/30/18 23:09 Lactobacillus Acidophilus (Culturelle) 1 tab TWICE A DAY ORAL 04/29/18 20:00 05/29/18 19:59 05/01/18 08:44 Metoclopramide HCl (Reglan) 10 mg Q8H PRN IVP Nausea & Vomiting 04/27/18 13:45 05/27/18 13:44 04/30/18 07:28 Miscellaneous Medication (ROPER OPERATOR Rate Change) 1 ea DAILY PRN MISC rate change 05/01/18 09:30 05/03/18 09:29 Miscellaneous Medication (ROPER OPERATOR shift volume) 1 ea Q12HR@0700,1900 MISC 05/01/18 19:00 05/03/18 18:59 Ondansetron HCl (Zofran) 4 mg Q6H PRN IVP Nausea & Vomiting 04/29/18 09:45 05/29/18 09:44 05/01/18 08:56 Phenol/Menthol (Chloraseptic) 1 spray Q3H PRN ORAL For Pain(Throat) 04/25/18 08:58 05/25/18 08:57 Polyethylene Glycol (Miralax) 17 gm HSPRN PRN ORAL Constipation 04/23/18 14:30 05/23/18 14:29 04/28/18 17:26 Sodium Chloride 1,000 ml @ 50 mls/hr Q20H IV 04/23/18 15:04 05/23/18 15:03 04/30/18 17:11 Vancomycin HCl (Vanco rx to dose) 1 ea DAILY PRN MISC VANCO PER PHARMACY 04/23/18 16:00 05/23/18 15:59 Vancomycin HCl/ Dextrose 250 ml @ 166.667 mls/hr Q12H IVPB 04/27/18 18:00 05/02/18 17:59 05/01/18 05:44 Zolpidem Tartrate (Ambien) 5 mg DAILYPRN PRN ORAL Insomnia 05/01/18 09:30 05/08/18 09:29 Brandt Mcrae MD May 01, 2018 16:39
[2018-05-01] MEDS: cefTRIAXone 1 GM in D5W 55 ML IVPB SCH (16:55)
[2018-05-01] MEDS ORDERED: 1/2 NS 1000ml IV ONE (18:06)
[2018-05-01 20:22] VITALS: BP 141/77
[2018-05-01] MEDS: Metoclopramide 10mg/2ml Inj IVP PRN (21:02)
[2018-05-01] MEDS: Dyna-Hex 2% Top Sol 2oz TOPIC SCH (21:09)
[2018-05-02] VITALS: BP 138/80
[2018-05-02 04:00] VITALS: BP 118/80
[2018-05-02] MEDS: Vancomycin 1250mg/D5W 250ml 250 ML IVPB SCH ×2 (05:19→17:49)
[2018-05-02] MEDS: NovoLOG Insulin Flexpen SUBQ SCH ×4 (05:57→20:24)
[2018-05-02] MEDS: PCA shift volume MISC SCH ×2 (07:11→19:00)
[2018-05-02 08:00] VITALS: BP 130/84
[2018-05-02] MEDS: Lactobacillus-GG tablet ORAL SCH ×2 (08:30→17:51)
[2018-05-02] MEDS: Docusate 100mg cap ORAL SCH ×2 (08:30→17:51)
[2018-05-02] MEDS: Heparin 5000 units/ml inj SUBQ SCH ×2 (08:34→20:24)
--- NOTE | 2018-05-02 11:07 | General Progress Note ---
Assessment/Plan Problem List: (1) Breast abscess ICD Codes: N61.1 - Abscess of the breast and nipple SNOMED: 21123267 (2) Hidradenitis suppurativa ICD Codes: L73.2 - Hidradenitis suppurativa SNOMED: 16206846 (3) Fibromyalgia ICD Codes: M79.7 - Fibromyalgia SNOMED: 504310781 Assessment/Plan B/L hidradenitis suppurativa with abscesses s/p b/l masectomy (04/26) with flap and transfer closure (04/29) with no complications - continue IV abx per ID with Vanco and Rocephin, plan for discharge on sunday , per ID will discharge on Bactrim and Keflex x 5 days - pain is controlled - bowel regimen - encourage ambulation and PT/OT Fibromyalgia - controlled on pain meds Obesity - encourage weight loss and diet modification Subjective Date patient seen: May 02, 2018 Time patient seen: 09:00 Allergies: Coded Allergies: MORPHINE (Verified Allergy, Unknown, 04/23/18) All Systems: reviewed and negative except above Subjective overnight one of patient's ken drains fell out, Dr. Jiang said ok pain controlled Objective Last 24 Hour Vital Signs Date Time Temp Pulse Resp B/P (MAP) Pulse Ox O2 Delivery O2 Flow Rate FiO2 05/02/18 09:00 Room Air 05/02/18 08:00 97.8 78 17 130/84 (99) 99 97.8 05/02/18 08:00 17 05/02/18 04:00 18 05/02/18 04:00 98.3 82 17 118/80 (93) 97 98.3 05/02/18 00:00 18 05/02/18 00:00 99.0 84 17 138/80 (99) 98 99.0 05/01/18 21:00 Room Air 05/01/18 20:22 99.9 80 18 141/77 (98) 98 99.9 05/01/18 20:00 18 05/01/18 16:00 18 05/01/18 16:00 98.9 74 20 133/84 (100) 99 98.9 05/01/18 12:00 98.9 79 18 120/72 (88) 100 98.9 05/01/18 12:00 18 Intake and Output 05/01/18 05/02/18 19:00 07:00 Intake Total 990 ml 400 ml Output Total 5 ml 22 ml Balance 985 ml 378 ml Intake Oral 540 ml IV Total 450 ml 400 ml Drainage Total 5 ml 22 ml # Voids 7 4 Height (Feet): 5 Height (Inches): 5.00 Weight (Pounds): 266 General Appearance: no apparent distress, alert EENT: PERRL/EOMI, normal ENT inspection Neck: non-tender, normal alignment, supple, normal inspection Cardiovascular: normal rate, regular rhythm, regularly irregular, no gallop/ murmur, no JVD Respiratory/Chest: lungs clear, normal breath sounds, no respiratory distress, other - wound c/d/i Abdomen: non tender, soft, no organomegaly, no mass, abnormal bowel sounds Extremities: normal range of motion, non-tender, normal inspection Edema: no edema noted Arm (L), no edema noted Arm (R), no edema noted Leg (L), no edema noted Leg (R), no edema noted Pedal (L), no edema noted Pedal (R), no edema noted 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
[2018-05-02 12:00] VITALS: BP 133/86
[2018-05-02 16:00] VITALS: BP 129/85
[2018-05-02] MEDS: cefTRIAXone 1 GM in D5W 55 ML IVPB SCH (16:38)
[2018-05-02 20:00] VITALS: BP 127/78
[2018-05-02] MEDS: Dyna-Hex 2% Top Sol 2oz TOPIC SCH (20:20)
[2018-05-03] VITALS: BP 157/88
[2018-05-03 04:00] VITALS: BP 127/66
[2018-05-03] MEDS: NovoLOG Insulin Flexpen SUBQ SCH ×4 (06:05→21:05)
[2018-05-03] MEDS: Vancomycin 1250mg/D5W 250ml 250 ML IVPB SCH (06:05)
[2018-05-03] MEDS: PCA shift volume MISC SCH (07:00)
[2018-05-03 07:34] LABS: BASOPHILS % (AUTO) 0.6 % (0.0-2.0); EOSINOPHILS % (AUTO) 10.9 % (0.0-3.0); HEMATOCRIT 33.6 % (37.0-47.0); HEMOGLOBIN 11.7 G/DL (12.0-16.0); LYMPHOCYTES % (AUTO) 18.5 % (20.0-45.0); MEAN CORPUSCULAR VOLUME 82 FL (80-99); MONOCYTES % (AUTO) 8.1 % (1.0-10.0); PLATELET COUNT 270 K/UL (150-450); RED BLOOD COUNT 4.07 M/UL (4.20-5.40); RED CELL DISTRIBUTION WIDTH 10.4 % (11.6-14.8); WHITE BLOOD COUNT 10.6 K/UL (4.8-10.8)
[2018-05-03 07:50] LABS: ALANINE AMINOTRANSFERASE 23 U/L (12-78); ALBUMIN/GLOBULIN RATIO 0.7 (1.0-2.7); ALKALINE PHOSPHATASE 74 U/L (46-116); ANION GAP 12 mmol/L (5-15); ASPARTATE AMINO TRANSFERASE 18 U/L (15-37); BILIRUBIN,TOTAL 0.4 MG/DL (0.2-1.0); BLOOD UREA NITROGEN 4 mg/dL (7-18); CARBON DIOXIDE 23 MMOL/L (21-32); CHLORIDE 103 MMOL/L (98-107); CREATININE 0.8 MG/DL (0.55-1.30); POTASSIUM 3.7 MMOL/L (3.5-5.1); SODIUM 138 MMOL/L (136-145)
[2018-05-03 08:00] VITALS: BP 132/74
[2018-05-03] MEDS: Heparin 5000 units/ml inj SUBQ SCH ×2 (09:00→21:00)
[2018-05-03] MEDS: Docusate 100mg cap ORAL SCH ×2 (09:00→17:01)
[2018-05-03] MEDS: Lactobacillus-GG tablet ORAL SCH ×2 (09:46→17:01)
--- NOTE | 2018-05-03 10:23 | General Progress Note ---
Progress Note Progress Note Pt seen and examined. Doing well. POD# 4 from closure of bilateral axillary wounds. Dced all drains. Pull PICC and dc home in AM on abx and po pain meds. Edilma Arellano MD, MD May 03, 2018 10:23
[2018-05-03] MEDS ORDERED: COLACE100 MG ORAL (10:24)
[2018-05-03] MEDS ORDERED: BACTRIM DS TAB1 EAC1 ORAL (10:24)
[2018-05-03] MEDS ORDERED: CEPHALEXIN500 MG ORAL ×2 (10:24→15:50)
[2018-05-03] MEDS ORDERED: NORCO 5-325 TA1 EACH ORAL (10:24)
--- NOTE | 2018-05-03 10:31 | General Progress Note ---
Assessment/Plan Problem List: (1) Breast abscess ICD Codes: N61.1 - Abscess of the breast and nipple SNOMED: 20046617 (2) Hidradenitis suppurativa ICD Codes: L73.2 - Hidradenitis suppurativa SNOMED: 66018430 (3) Fibromyalgia ICD Codes: M79.7 - Fibromyalgia SNOMED: 423430805 Assessment/Plan B/L hidradenitis suppurativa with abscesses s/p b/l masectomy (04/26) with flap and transfer closure (04/29) with no complications - plan for discharge on sunday, per ID will discharge on Bactrim and Keflex x 5 days - d/c PICC prior to D/C fromhospital - pain is controlled - bowel regimen - encourage ambulation and PT/OT Fibromyalgia - controlled on pain meds Obesity - encourage weight loss and diet modification Subjective Date patient seen: May 03, 2018 Time patient seen: 09:00 Allergies: Coded Allergies: MORPHINE (Verified Allergy, Unknown, 04/23/18) Subjective all ken drains taken out patient doing well Objective Last 24 Hour Vital Signs Date Time Temp Pulse Resp B/P (MAP) Pulse Ox O2 Delivery O2 Flow Rate FiO2 05/03/18 04:00 97.9 81 18 127/66 (86) 98 97.9 05/03/18 04:00 18 05/03/18 00:00 97.7 75 18 157/88 (111) 100 97.7 05/03/18 00:00 18 05/02/18 21:00 Room Air 05/02/18 20:00 98.1 70 18 127/78 (94) 100 98.1 05/02/18 20:00 18 05/02/18 16:00 18 05/02/18 16:00 97.9 83 17 129/85 (100) 99 97.9 05/02/18 14:03 18 05/02/18 14:02 18 05/02/18 12:00 97.9 88 18 133/86 (102) 100 97.9 05/02/18 12:00 18 Intake and Output 05/02/18 05/03/18 19:00 07:00 Intake Total 966.667 ml 1113.333 ml Output Total 12 ml 1 ml Balance 954.667 ml 1112.333 ml Intake Oral 300 ml 480 ml IV Total 666.667 ml 633.333 ml Drainage Total 12 ml 1 ml # Voids 5 3 Laboratory Tests 05/03/18 06:20: White Blood Count 10.6, Red Blood Count 4.07L, Hemoglobin 11.7L, Hematocrit 33.6L, Mean Corpuscular Volume 82, Mean Corpuscular Hemoglobin 28.7, Mean Corpuscular Hemoglobin Concent 34.8, Red Cell Distribution Width 10.4L, Platelet Count 270, Mean Platelet Volume 7.3, Neutrophils (%) (Auto) 62.0, Lymphocytes (%) (Auto) 18.5L, Monocytes (%) (Auto) 8.1, Eosinophils (%) (Auto) 10.9H, Basophils (%) (Auto) 0.6, Sodium Level 138, Potassium Level 3.7, Chloride Level 103, Carbon Dioxide Level 23, Anion Gap 12, Blood Urea Nitrogen 4L, Creatinine 0.8, Estimat Glomerular Filtration Rate > 60, Glucose Level 96, Calcium Level 9.0, Total Bilirubin 0.4, Aspartate Amino Transf (AST/SGOT) 18, Alanine Aminotransferase (ALT/SGPT) 23, Alkaline Phosphatase 74, Total Protein 7.2, Albumin 3.0L, Globulin 4.2, Albumin/Globulin Ratio 0.7L Height (Feet): 5 Height (Inches): 5.00 Weight (Pounds): 266 General Appearance: WD/WN, no apparent distress, morbidly obese EENT: PERRL/EOMI, normal ENT inspection, TMs normal Neck: non-tender, normal alignment, supple Cardiovascular: normal peripheral pulses, normal rate, regular rhythm, regularly irregular Respiratory/Chest: other - minimal tenderness, wounds c/d/i Extremities: normal range of motion, non-tender, normal inspection Edema: no edema noted Arm (L), no edema noted Arm (R), no edema noted Leg (L), no edema noted Leg (R), no edema noted Pedal (L), no edema noted Pedal (R), no edema noted 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
--- NOTE | 2018-05-03 10:43 | Discharge Summary ---
Discharge Summary Hospital Course Date of Admission Apr 23, 2018 at 14:42 Date of Discharge Admitting Diagnosis Hidradinitis suppuritiva HPI Sharlene Moore is a 22 year old female who was admitted on Apr 23, 2018 at 14:42 for Hidradinitis Suppuritiva Consultations Plastic Surgery: Dr. Jiang Infectious Disease: Dr. Jimenez Hospital Course Course: This is a 22-year-old female Obese female PMH of Hydradenitis suppurativa, and Fibromyalso who was admitted for breast abscess and followed by Plastic Surgery , Dr. Jiang. Pt. underwent radical excision of axillary infected tissue, received wound care, and definitive flap inset and closure of her wounds on 03/09. Patient has also been followed by ID and received IV abx during her stay. Per ID patient is being discharged with PO abx for 5 days, (see below). Patient has also been given a pain and bowel regimen during her stay and for discharge. Condition: good Follow Up: patient to follow up with doctor in [place] to remove sutures, as instructed by Dr. Jiang Meds: Bactrim and Keflex x 5 days Cameron #30 tbalet Colace Dispo - home to [place] - patient ok to fly, given Doctor's note Discharge Discharge Disposition Patient was discharged to Rhoda Vega DO May 03, 2018 10:43
[2018-05-03] MEDS ORDERED: ZOFRAN4 MG ORAL (10:48)
[2018-05-03 12:00] VITALS: BP 148/97
[2018-05-03] MEDS ORDERED: HYDROmorphone 2mg tab ORAL PRN (12:00)
--- NOTE | 2018-05-03 15:42 | Infectious Diseases Prog Note ---
Assessment/Plan Assessment/Plan ASSESSMENT AND PLAN: 1. bilateral axilla and breast hidradenitis suppurativa with abscesses/ cellulitis/wound infection/drainage - s/p debridement and wound closure - vancomycin and ceftriaxone - finish course - monitor labs periodically - can discharge on bactrim plus keflex x 5 days upon discharge - patient will have had at least 2 weeks abx (iv plus po) and one week post - closure of wounds 2. Obesity. 3. Prediabetes or type 2 diabetes mellitus. 4. History of hidradenitis suppurativa x10 years. 5. History of antibiotic use. 6. She has history of inguinal surgery in the past. 7. Allergic to morphine. 8. Social history is negative. 9. Family history positive for fibromyalgia and diabetes. 10. Case was discussed with RN. 11. MAR was noted. 12. Continue treatment per primary consultants. Subjective Constitutional: Denies: fever HEENT: Denies: congestion Respiratory: Denies: shortness of breath Cardiovascular: Denies: chest pain Gastrointestinal/Abdominal: Denies: nausea, vomiting Genitourinary: Denies: dysuria, hematuria Neurologic: Denies: headache Psychiatric: Denies: depression Skin: Denies: rash Hematologic: Denies: bleeding Musculoskeletal: Denies: pain Allergies: Coded Allergies: MORPHINE (Verified Allergy, Unknown, 04/23/18) Objective Vital Signs Last 24 Hour Vital Signs Date Time Temp Pulse Resp B/P (MAP) Pulse Ox O2 Delivery O2 Flow Rate FiO2 05/03/18 12:00 98.4 92 18 148/97 (114) 97 98.4 05/03/18 09:00 Room Air 05/03/18 08:00 20 05/03/18 08:00 98.2 68 20 132/74 (93) 99 98.2 05/03/18 04:00 97.9 81 18 127/66 (86) 98 97.9 05/03/18 04:00 18 05/03/18 00:00 97.7 75 18 157/88 (111) 100 97.7 05/03/18 00:00 18 05/02/18 21:00 Room Air 05/02/18 20:00 98.1 70 18 127/78 (94) 100 98.1 05/02/18 20:00 18 05/02/18 16:00 18 05/02/18 16:00 97.9 83 17 129/85 (100) 99 97.9 Height (Feet): 5 Height (Inches): 5.00 Weight (Pounds): 266 General Appearance: no acute distress HEENT: normocephalic, atraumatic, anicteric, mucous membranes moist Respiratory/Chest: lungs clear, normal breath sounds, no respiratory distress, no accessory muscle use Cardiovascular: normal rate, regular rhythm, no gallop/murmur, no JVD Abdomen: normal bowel sounds, soft, non tender, no organomegaly, non distended Genitourinary: other - no smith Extremities: no cyanosis Skin: no rash 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, alert, oriented x 3, responsive Lymphatic: no neck adenopathy Musculoskeletal: no effusion Objective none Laboratory Tests Test 05/03/18 06:20 White Blood Count 10.6 K/UL (4.8-10.8) Red Blood Count 4.07 M/UL (4.20-5.40) L Hemoglobin 11.7 G/DL (12.0-16.0) L Hematocrit 33.6 % (37.0-47.0) L Mean Corpuscular Volume 82 FL (80-99) Mean Corpuscular Hemoglobin 28.7 PG (27.0-31.0) Mean Corpuscular Hemoglobin Concent 34.8 G/DL (32.0-36.0) Red Cell Distribution Width 10.4 % (11.6-14.8) L Platelet Count 270 K/UL (150-450) Mean Platelet Volume 7.3 FL (6.5-10.1) Neutrophils (%) (Auto) 62.0 % (45.0-75.0) Lymphocytes (%) (Auto) 18.5 % (20.0-45.0) L Monocytes (%) (Auto) 8.1 % (1.0-10.0) Eosinophils (%) (Auto) 10.9 % (0.0-3.0) H Basophils (%) (Auto) 0.6 % (0.0-2.0) Sodium Level 138 MMOL/L (136-145) Potassium Level 3.7 MMOL/L (3.5-5.1) Chloride Level 103 MMOL/L (98-107) Carbon Dioxide Level 23 MMOL/L (21-32) Anion Gap 12 mmol/L (5-15) Blood Urea Nitrogen 4 mg/dL (7-18) L Creatinine 0.8 MG/DL (0.55-1.30) Estimat Glomerular Filtration Rate > 60 mL/min (>60) Glucose Level 96 MG/DL (74-106) Calcium Level 9.0 MG/DL (8.5-10.1) Total Bilirubin 0.4 MG/DL (0.2-1.0) Aspartate Amino Transf (AST/SGOT) 18 U/L (15-37) Alanine Aminotransferase (ALT/SGPT) 23 U/L (12-78) Alkaline Phosphatase 74 U/L (46-116) Total Protein 7.2 G/DL (6.4-8.2) Albumin 3.0 G/DL (3.4-5.0) L Globulin 4.2 g/dL Albumin/Globulin Ratio 0.7 (1.0-2.7) L Current Medications Medications (Trade) Dose Ordered Sig/Eloisa Route PRN Reason Start Time Stop Time Status Last Admin Dose Admin Acetaminophen (Tylenol) 650 mg Q4H PRN ORAL FEVER 04/29/18 09:45 05/29/18 09:44 Al Hydroxide/Mg Hydroxide (Mylanta II) 30 ml Q6H PRN ORAL dyspepsia 04/23/18 14:30 05/23/18 14:29 Calcium Carbonate (Tums) 500 mg Q4HR PRN ORAL HEARBURN 04/27/18 10:00 05/27/18 09:59 04/27/18 10:40 Cephalexin (Keflex) 500 mg BID ORAL 05/03/18 18:00 05/10/18 17:59 Chlorhexidine Gluconate (Rose-Hex 2%) 1 applic DAILY@1999 TOPIC 04/25/18 20:00 05/25/18 19:59 05/02/18 20:20 Dextrose (Dextrose 50%) 25 ml Q30M PRN IV Hypoglycemia 04/25/18 16:15 05/25/18 16:14 Dextrose (Dextrose 50%) 50 ml Q30M PRN IV Hypoglycemia 04/25/18 16:15 05/25/18 16:14 Diphenhydramine HCl (Benadryl) 12.5 mg Q6H PRN IM Itching/Pruritis 05/03/18 16:00 05/31/18 09:59 Docusate Sodium (Colace) 100 mg TWICE A DAY ORAL 04/29/18 09:00 05/29/18 08:59 05/02/18 17:51 Heparin Sodium (Porcine) (Heparin 5000 units/ml) 5,000 units EVERY 12 HOURS SUBQ 04/29/18 09:00 05/29/18 08:59 05/02/18 20:24 Hydromorphone HCl (Dilaudid) 2 mg Q4H PRN ORAL For Pain 05/03/18 12:45 05/10/18 12:44 Insulin Aspart (NovoLOG) BEFORE MEALS AND HS SUBQ 04/25/18 16:30 05/25/18 16:29 05/03/18 12:35 Lactobacillus Acidophilus (Culturelle) 1 tab TWICE A DAY ORAL 04/29/18 20:00 05/29/18 19:59 05/03/18 09:46 Metoclopramide HCl (Reglan) 10 mg Q8H PRN IVP Nausea & Vomiting 04/27/18 13:45 05/27/18 13:44 05/01/18 21:02 Ondansetron HCl (Zofran) 4 mg Q6H PRN ORAL Nausea & Vomiting 05/03/18 12:00 06/02/18 11:59 Phenol/Menthol (Chloraseptic) 1 spray Q3H PRN ORAL For Pain(Throat) 04/25/18 08:58 05/25/18 08:57 Polyethylene Glycol (Miralax) 17 gm HSPRN PRN ORAL Constipation 04/23/18 14:30 05/23/18 14:29 04/28/18 17:26 Trimethoprim/ Sulfamethoxazole (Bactrim-DS) 1 tab TWICE A DAY ORAL 05/03/18 18:00 05/10/18 17:59 Zolpidem Tartrate (Ambien) 5 mg DAILYPRN PRN ORAL Insomnia 05/01/18 09:30 05/08/18 09:29 Brandt Mcrae MD May 03, 2018 15:42
[2018-05-03 16:00] VITALS: BP 146/91
[2018-05-03] MEDS ORDERED: DiphenhydrAMINE 50mg/ml Inj IM PRN (16:00)
[2018-05-03] MEDS: HYDROmorphone 2mg tab ORAL PRN ×2 (17:02→20:58)
[2018-05-03] MEDS ORDERED: Cephalexin 500mg cap ORAL SCH (18:00)
[2018-05-03] MEDS: Cephalexin 500mg cap ORAL SCH ×2 (18:41→23:41)
[2018-05-03] MEDS: Bactrim-DS 1 tab ORAL SCH (18:44)
[2018-05-03 20:00] VITALS: BP 128/96
[2018-05-04] VITALS: BP 143/74
[2018-05-04] MEDS: HYDROmorphone 2mg tab ORAL PRN ×2 (01:00→05:04)
[2018-05-04 04:00] VITALS: BP 126/81
[2018-05-04] MEDS: Cephalexin 500mg cap ORAL SCH (05:03)
[2018-05-04] MEDS: NovoLOG Insulin Flexpen SUBQ SCH (06:30)
[2018-05-04 08:00] VITALS: BP 134/84
[2018-05-04] MEDS: Bactrim-DS 1 tab ORAL SCH (08:28)
[2018-05-04] MEDS: Docusate 100mg cap ORAL SCH (08:28)
[2018-05-04] MEDS: Lactobacillus-GG tablet ORAL SCH (08:28)
[2018-05-04] MEDS: Heparin 5000 units/ml inj SUBQ SCH (08:28)
[2018-05-04] MEDS ORDERED: NS Irrig 1000ml ONE (09:04)
[2018-05-04] MEDS ORDERED: 1/2 NS 1000ml IV ONE (09:05)
--- NOTE | 2018-05-05 12:22 | Cardiology Report ---
APPROVED REPORT EKG Measurement Heart [id number] [place] [id number] Normal sinus rhythm Normal ECG
== END 2018-05-04 10:30 | disposition home or self-care (01) | DRG 574 ==
LOC: EMR 13:15 → EDBEDREQ 13:52 → 3E 14:42
DX: L03.112 Cellulitis of left axilla (principal); Z68.41 Body mass index [BMI] 40.0-44.9, adult; L03.111 Cellulitis of right axilla; N61.1 Abscess of the breast and nipple; L73.2 Hidradenitis suppurativa; E11.9 Type 2 diabetes mellitus without complications; E66.01 Morbid (severe) obesity due to excess calories; M79.7 Fibromyalgia
CPT/HCPCS: 36415; 36569; 71045; 76937; 80048; 80053; 80202; 81025; 82962; 83735; 85025; 85610; 85730; 93005; 94003; 94150; 99285; J1815; J2250; J2405; J2710; J2765